=== PATIENT | male | born 1940 | race Caucasian/White ===

== ENCOUNTER 2018-04-30 09:29 | Day surgery (SDC) | payer MEDICARE ==
[~2018-04-30] VITALS: Ht 172.7 cm; Wt 125.2 kg
[2018-04-30] VITALS (8 sets, daily range): BP systolic 112–144; BP diastolic 65–85
[2018-04-30] MEDS ORDERED: LIDOCAINE 2% VISCOUS 15 ML UDC ONE (09:42)
[2018-04-30] MEDS ORDERED: NS IV 1000 ML 1,000 ML ONE (09:42)
[2018-04-30] MEDS ORDERED: proPOfol 200 MG/20 ML (DIPRIVAN) VIAL IV ONE (10:26)
[2018-04-30] MEDS ORDERED: MIDAZOLAM 5 MG/5 ML (VERSED) VIAL ONE (10:26)
[2018-04-30] MEDS ORDERED: TAMS0.4C2 PO (10:50)
[2018-04-30] MEDS ORDERED: POTA10TA36 PO (10:50)
[2018-04-30] MEDS ORDERED: RT-ALBUINH IH (10:50)
[2018-04-30] MEDS ORDERED: CETI10TA17 PO (10:50)
[2018-04-30] MEDS ORDERED: FURO-125 PO (10:50)
[2018-04-30] MEDS ORDERED: APIX5TAB PO (10:50)
[2018-04-30] MEDS ORDERED: AMLO10TA2 PO (10:52)
[2018-04-30] MEDS ORDERED: LOSA100T28 PO (10:52)
[2018-04-30] MEDS ORDERED: NS IV 1000 ML 1,000 ML IV SCH (11:00)
[2018-04-30] MEDS ORDERED: MIDAZOLAM 2 MG/2 ML (VERSED) VIAL IVP ONE (11:15)
--- NOTE | 2018-04-30 11:31 | Anesthesia-Procedure Note ---
Procedures/Interventions Procedure Start/Stop/Diagnosis Date of Procedure: Apr 30, 2018 Start Time: 11:05 Referring Physician: Orin Preprocedural Diagnosis: Atrial Fibrillation Brief History Called to Cardiology for scheduled sedation of pt for a YUMIKO with cardioversion for A-Fib. Pt was already sedated with Versed by RN on arrival. YUMIKO in progress. NPO verified ASA 3. All standard monitors applied, O2 per NC at 4 lpm flowing. Pt was given a total of 170 mg of Propofol increments. Pt coverted to SB in 50's. VSS. Pt was opening eyes, sats 99%. Report given to RN Stop Time: 11:20 Postprocedural Diagnosis: Atrial Fibrillation ALCON NORIEAG CRNA Apr 30, 2018 11:31
[2018-04-30] MEDS ORDERED: LIDOCAINE 2% VISCOUS 15 ML UDC PO ONE (12:15)
--- NOTE | 2018-04-30 14:09 | Cardioversion ---
Cardioversion PROCEDURE PHYSICIAN: Reji Sr MD DATE OF PROCEDURE: 04/30/18 DIRECT EXTERNAL ELECTRICAL CARDIOVERSION: Indications: Atrial Fibrillation with rapid ventricular rate Preoperative diagnoses: Atrial Fibrillation with rapid ventricular rate Postoperative diagnosis: Sinus rhythm, Successful Electrical Cardioversion History: Anesthesia: By Anesthesia services Complications: None Specimen: None Contrast: 0 Flouroscopy: none Procedure Details: The patient was brought the laboratory director after informed consent was taken, all the risks and complications were explained including the risk of stroke. YUMIKO showed no LA/OXANA thrombus. Electrical cardioversion was carried out with anesthesia support with propofol. Two 200 joules of synchronized shock was delivered through external patches which promptly restored sinus rhythm. The patient tolerated the procedure well. Conclusions: 1.Successful Cardioversion. 2.Continue oral anticoagulation and rate controlling agent. 3.Follow up in office in 7 days. Reji Sr MD, RS, CCDS Cardiac Electrophysiology Anthony SR MD Apr 30, 2018 2:09 pm
== END 2018-04-30 14:00 | disposition home or self-care (01) ==
LOC: CATH 09:29 → SURG 12:08 → CATH 14:00
PROVIDERS: ATTEND Internal Medicine Interventional Cardiology
DX: I48.0 Paroxysmal atrial fibrillation (principal); J44.9 Chronic obstructive pulmonary disease, unspecified; I12.9 Hypertensive chronic kidney disease with stage 1 through stage 4 chronic kidney disease, or unspecified chronic kidney disease; N18.9 Chronic kidney disease, unspecified; E78.5 Hyperlipidemia, unspecified; E66.01 Morbid (severe) obesity due to excess calories; Z68.41 Body mass index [BMI] 40.0-44.9, adult; Z79.01 Long term (current) use of anticoagulants; Z79.899 Other long term (current) drug therapy; Z87.891 Personal history of nicotine dependence; Z98.84 Bariatric surgery status
CPT/HCPCS: 87081; 92960; 93005; 93320; 93325

== ENCOUNTER 2018-08-05 12:00 | Outpatient (RCR) | payer MEDICARE, OTHER ==
[~2018-08-05 12:00] MED LIST: AMLO10TA6 PO; APIX5TAB PO; CETI10TA17 PO; FURO-125 PO; LOSA100T8 PO; POTA10TA36 PO; RT-ALBUINH IH; TAMS0.4C2 PO
== END 2018-10-05 | disposition home or self-care (01) ==
LOC: CARD 12:00
PROVIDERS: ATTEND Internal Medicine Interventional Cardiology
DX: I48.1 Persistent atrial fibrillation (principal)
CPT/HCPCS: 93270

== ENCOUNTER 2019-04-15 07:15 | Day surgery (SDC) | payer MEDICAID, MEDICARE ==
[~2019-04-15] VITALS: Ht 170.2 cm; Wt 126.6 kg
[~2019-04-15 07:15] MED LIST changes: -AMLO10TA6 PO; +AMLO10TA7 PO; +LOSA100T57 PO; -LOSA100T8 PO
[2019-04-15] MEDS ORDERED: LIDOCAINE 1% INJ 20 ML 20 ML VIAL ONE (07:16)
--- OUTSIDE RECORDS SUMMARY | 2019-04-15 07:19 | XMS REPORT | Continuity of Care Document ---
Author Organization Unknown Address Unknown Allergies There is no data. Medications There is no data. Problems There is no data. Procedures There is no data. Results There is no data. Encounters ACCT No. Visit Date/Time Discharge Status Pt. Type Provider Facility Loc./Unit Complaint [id number] 04/06/2019 14:40:00 04/06/2019 23:59:59 [facility]
[2019-04-15 07:26] VITALS: BP 140/65
[2019-04-15] MEDS ORDERED: LIDOCAINE 1% INJ 20 ML 20 ML VIAL INJ ONE (07:30)
[2019-04-15 09:50] VITALS: BP 148/62
--- NOTE | 2019-04-17 15:46 | Implantation of Loop Monitor ---
Implant of Loop Monitior PROCEDURE PHYSICIAN: Reji Sr MD IMPLANTATION OF LOOP MONITOR REPORT DATE OF PROCEDURE: 04/15/19 ATTENDING PHYSICIAN: Dr. Armin Sr. PERFORMING PHYSICIAN: Dr. Armin Sr. INDICATION: Long-term surveillance of atrial fibrillation PREOP DIAGNOSIS: Long-term surveillance of atrial fibrillation POSTOP DIAGNOSIS: Atrial fibrillation, s/p implantation of loop recorder. PROCEDURE DETAILS: The patient is a 78 male with history of paroxysmal atrial fibrillation requiring long-term surveillance. Therefore implantable loop recorder was discussed and agreed with the patient. Informed consent was taken. All risks and complications were discussed at length. The patient was draped and prepped in the usual sterile fashion. Local anesthesia was lidocaine, which was given in the substernal area close to the 4th intercostal space. Loop monitor was implanted according to the protocol. Steri-Strips were placed at the end of the procedure. There were no complications and the patient tolerated the procedure well. ANESTHESIA: Local anesthesia with lidocaine. COMPLICATIONS: None CONTRAST/FLUOROSCOPY: None CONCLUSION: 1. Successful implantation of loop monitor for atrial fibrillation. 2. No complication and the patient tolerated the procedure well. Reji Sr MD, RS, CCDS Cardiac Electrophysiology Anthony SR MD Apr 17, 2019 15:46
== END 2019-04-15 09:52 | disposition home or self-care (01) ==
LOC: CATH 07:15
PROVIDERS: ATTEND Internal Medicine Interventional Cardiology
DX: I48.1 Persistent atrial fibrillation (principal); J44.9 Chronic obstructive pulmonary disease, unspecified; E78.5 Hyperlipidemia, unspecified; I49.1 Atrial premature depolarization; I49.3 Ventricular premature depolarization; I12.9 Hypertensive chronic kidney disease with stage 1 through stage 4 chronic kidney disease, or unspecified chronic kidney disease; N18.3 Chronic kidney disease, stage 3 (moderate); R53.83 Other fatigue; E66.9 Obesity, unspecified; Z98.84 Bariatric surgery status; Z68.41 Body mass index [BMI] 40.0-44.9, adult; Z79.899 Other long term (current) drug therapy
CPT/HCPCS: 33285

== ENCOUNTER 2019-10-28 08:01 | Day surgery (SDC) | payer MEDICARE ==
[2019-10-28] VITALS (7 sets, daily range): BP systolic 84–134; BP diastolic 50–74
[~2019-10-28] VITALS: Ht 172.2 cm; Wt 128.0 kg
[2019-10-28] MEDS ORDERED: NS IV 1000 ML 1,000 ML ONE (08:04)
[2019-10-28] MEDS ORDERED: NS IV 1000 ML 1,000 ML IV SCH (08:15)
[2019-10-28] MEDS ORDERED: proPOfol 200 MG/20 ML (DIPRIVAN) VIAL IV ONE (08:37)
[2019-10-28] MEDS ORDERED: MIDAZOLAM 2 MG/2 ML (VERSED) VIAL ONE (08:38)
--- NOTE | 2019-10-28 09:50 | NUR ---
iv dc'd, catheter intact, drsg applied. intructions given. pt out per wheelchair to vehicle with pt
--- NOTE | 2019-10-28 10:46 | Cardioversion ---
Cardioversion PROCEDURE PHYSICIAN: Reji Sr MD DATE OF PROCEDURE: 10/28/19 DIRECT EXTERNAL ELECTRICAL CARDIOVERSION: Indications: Atrial Fibrillation with controlled ventricular rate Preoperative diagnoses: Atrial Fibrillation with controlled ventricular rate Postoperative diagnosis: Sinus rhythm, Successful Electrical Cardioversion History: This is a 78-year-old gentleman with persistent atrial fibrillation. He has been on uninterrupted oral anticoagulation therapy for at least the last one month. He was recently started on flecainide and metoprolol. Anesthesia: By Anesthesia services Complications: None Specimen: None Contrast: 0 Flouroscopy: none Procedure Details: The patient was brought the lab head after informed consent was taken, all the risks and complications were explained including the risk of stroke. Electrical cardioversion was carried out with anesthesia support with propofol. 200 joules of synchronized shock was delivered through external patches which promptly restored sinus rhythm. The patient tolerated the procedure well. Conclusions: 1.Successful Cardioversion. 2.Continue oral anticoagulation, antiarrhythmic therapy and rate controlling agent. 3.Follow up in office in one month. Reji Sr MD, [facility] Cardiac Electrophysiology Anthony SR MD Oct 28, 2019 10:46
== END 2019-10-28 09:55 | disposition home or self-care (01) ==
LOC: CATH 08:01
PROVIDERS: ATTEND Internal Medicine Interventional Cardiology
DX: I48.0 Paroxysmal atrial fibrillation (principal); I49.1 Atrial premature depolarization; I49.3 Ventricular premature depolarization; J44.9 Chronic obstructive pulmonary disease, unspecified; I12.9 Hypertensive chronic kidney disease with stage 1 through stage 4 chronic kidney disease, or unspecified chronic kidney disease; N18.9 Chronic kidney disease, unspecified; M10.9 Gout, unspecified; Z87.891 Personal history of nicotine dependence; Z79.899 Other long term (current) drug therapy; Z98.84 Bariatric surgery status; Z80.9 Family history of malignant neoplasm, unspecified
CPT/HCPCS: 92960; 93005

== ENCOUNTER → 2020-01-03 | Outpatient (CLI) | payer MEDICARE ==
[~2020-01-03] MED LIST changes: +ALLO100T PO; +FLEC50TA PO; +FLUO20CA46 PO; +FURO20TA4 PO; +MTP25TSR PO; +TMSL.4C PO; +UMEC62.5 IH
--- NOTE | 2020-01-03 12:06 | Diagnostic Imaging Report ---
US RENAL ART DOPPLER TUYET COMP TECHNIQUE: Multi-projectional grayscale, color Doppler and spectral duplex imaging of the bilateral kidneys and renal vasculature was performed. INDICATION: Renal insufficiency. COMPARISON: None available. FINDINGS: Right side: Right kidney is normal in size measuring 11 cm. There is no hydronephrosis or suspicious mass lesion. A simple cyst projects from the lower pole measuring 1.8 x 1.3 x 1.5 cm, and requires no dedicated follow-up imaging. The following measurements were made for the right renal vasculature and/or as follows: Main renal artery: Main renal artery is patent with normal directional flow on color Doppler imaging. Maximal peak systolic velocity is 116 cm/s. Interlobular/arcuate arteries: Patent with normal acceleration indices. PSV:Aorta : 1.1 Left side: Left kidney is normal in size 12 cm. There is no hydronephrosis or suspicious mass lesion. The following measurements were made for the left renal vasculature and/or as follows: Main renal artery: Color Doppler imaging shows patency of the main renal artery. Maximal peak slight velocity is 220 cm/s in its proximal aspect. Interlobular/arcuate arteries: Patent with normal acceleration indices. PSV:Aorta : 2.0 IMPRESSION: 1. No renal atrophy or hydronephrosis. 2. No renal artery stenosis. Abnormal Parameters: PSV > 200 cm/s PSV:Aorta > 3.5 Acceleration Index < 300 cm/sec2 Acceleration time > 70 msec Dictated by: Dictated on workstation # [id number]
== END ==
LOC: RAD 07:41
PROVIDERS: ATTEND Urology
DX: N28.9 Disorder of kidney and ureter, unspecified (principal)
CPT/HCPCS: 76770; 93975

== ENCOUNTER → 2020-03-06 | Outpatient (CLI) | payer MEDICARE | LOC: LABNPT 09:17 | PROVIDERS: ATTEND Internal Medicine Interventional Cardiology | DX: Z01.818 Encounter for other preprocedural examination (principal); Z11.59 Encounter for screening for other viral diseases | CPT/HCPCS: 87635 ==

== ENCOUNTER 2020-03-09 07:07 | Day surgery (SDC) | payer MEDICARE ==
[2020-03-09] VITALS (18 sets, daily range): BP systolic 119–159; BP diastolic 59–97
[~2020-03-09] VITALS: Ht 172 cm; Wt 124.0 kg
[2020-03-09] MEDS ORDERED: NS IV 1000 ML 1,000 ML IV SCH (07:19)
[2020-03-09] MEDS ORDERED: HEParin (CATH LAB) 2,000 ML IV ONE (07:21)
[2020-03-09] MEDS ORDERED: LIDOCAINE 1% INJ 20 ML 20 ML VIAL ONE (07:21)
[2020-03-09] MEDS ORDERED: NS IV 1000 ML 4,000 ML ONE (07:21)
[2020-03-09] MEDS ORDERED: HEParin 1000 UNIT/ML (10ML VIAL) FOR BOLUS ONE ×2 (07:21→10:34)
[2020-03-09] MEDS ORDERED: ISOPROTERENOL 0.2 MG/D5W 50 ML IV ONE (07:30)
[2020-03-09] MEDS ORDERED: proPOfol 200 MG/20 ML (DIPRIVAN) VIAL IV ONE (07:42)
[2020-03-09] MEDS ORDERED: ROCURONIUM 10 MG/ML 5 ML SYRINGE IV ONE ×3 (07:42→11:40)
[2020-03-09] MEDS ORDERED: SUCCINYLCHOLINE INJ 100 MG/5 ML SYR ONE (07:42)
[2020-03-09] MEDS ORDERED: MIDAZOLAM 2 MG/2 ML (VERSED) VIAL ONE (07:43)
[2020-03-09] MEDS ORDERED: fentaNYL INJECTION 100 MCG/2 ML AMP ONE ×2 (07:43→13:34)
[2020-03-09] MEDS ORDERED: LIDOCAINE PF 1% 2 ML AMP ONE (07:43)
[2020-03-09] MEDS ORDERED: SEVOFLURANE (ULTANE) 15 ML INHAL SOLN ONE ×2 (07:43→13:11)
[2020-03-09] MEDS ORDERED: ONDANSETRON 4 MG/2 ML (SDV) Z0FRAN ONE (07:43)
[2020-03-09 07:46] LABS: HEMOGLOBIN 13.3 G/DL (13.3-17.7); MEAN PLATELET VOLUME 10.9 FL (7.4-10.4)
[2020-03-09] MEDS ORDERED: HEParin (CATH LAB) 1,000 ML IV ONE (07:51)
[2020-03-09 07:59] LABS: INR 1.2 (0.8-1.4)
[2020-03-09] MEDS ORDERED: HEParin DRIP 25000 UNIT/500ML 500 ML IV ONE (07:59)
[2020-03-09 08:05] LABS: BILIRUBIN,TOTAL 0.7 MG/DL (0.1-1.0); CREATININE SERUM 1.39 MG/DL (0.60-1.30); POTASSIUM 4.6 MMOL/L (3.6-5.0); TOTAL PROTEIN 6.8 GM/DL (6.4-8.2)
[2020-03-09] MEDS ORDERED: NS IV 1000 ML 1,000 ML ONE (10:27)
--- OUTSIDE RECORDS SUMMARY | 2020-03-09 10:38 | XMS REPORT ---
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 Dec, Active 362199137 Problem Congestive heart failure, un specified HF chronicity, unspecified heart failure type I50.9 Active 64678049 Problem Chronic kidney disease, unspecified N18.9 Active 699317649 Problem Chronic obstructive pulmonary disease, unspecified J44.9 Active 83595666 Problem Hyperlipidemia, unspecified E78.5 Ac tive 53995485 Problem Essential hypertension I10 Active 48219803 Problem Atrial fibrillation, unspecified type I48.91 Active 36754301 ALLERGIES No Information ENCOUNTERS Encounter Location Date Diagnosis [facility] [id number] [address] Jan, [facility] [address] [facility] [id number] [address] [address] Jan, [facility] [id number] [address] Jan, [facility] [id number] [place] [address] Jan, Chronic obstructive pulmonary disease, unspecified J44.9 [facility] [id number] [address] Jan, [facility] [id number] [place] [address] Jan, Chronic kidney disease, unspecified N18.9 [facility] [id number] [address] Jan, Tremor R25.1 [facility] [address] [facility] [id number] [address] [place] [id number] 27 Dec, 2019 [facility] [address] [facility] [id number] [address] [place] [address] Dec, Gout M10.9 ; Essential hyper tension I10 and Atrial fibrillation, unspecified type I48.91 [facility] [address] [facility] [id number] [address] [place] [address] Dec, Chronic obstructive pulmonar y disease, unspecified J44.9 [facility] [address] [facility] [id number] [address] [place] [address] Dec, Chronic obstructive pulmonar y disease, unspecified J44.9 [facility] [address] [place] [address] Dec, Ear pain H92.09 and Right ear pain H92.01 [place] [address] [place] [address] Nov, Congestive heart failure, unspecified HF chronicity, unspecified heart failure type I50.9 and Orthopnea R06.01 [place] [id number] [place] [address] Nov, [facility] [id number] [address] Nov, Acute heart failure, unspecified heart failure type I50.9 ; Atrial fibrillation, unspecified type I48.91 ; Chronic kidney disease, unspecified N18.9 and Acute kidney failure, unspecified N17.9 [facility] [id number] [id number] Nov, Orthopnea R06.01 and Atrial fibrillation, unspecified type I48.91 [facility] [address] [address] Oct, Orthopnea R06.01 ; Atrial fibrillation, unspecified type I48.91 ; Gout M10.9 ; Essential hypertension I10 and Bradycardia R00.1 [facility] [address] [facility] [id number] [address] [place] [address] Oct, [facility] [id number] [address] Oct, B12 deficiency E53.8 [facility] [id number] [address] Aug, Encounter for immunization Z23 [address] [id number] [address] Jul, [facility] [id number] [place] [address] Jul, B12 deficiency E53.8 [place] [address] [place] [address] Jul, Essential hypertension I10 and 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 00 [facility] [address] [place] [address] Jan, Morbid obesity E66.01 and Essential (primary) hypertension I10 [facility] [address] [place] [address] Jan, Essential (primary) hypertension I10 ; Morbid obesity E66.01 ; Chronic obstructive pulmonary disease, unspecified J44.9 ; Hyperlipidemia, unspecified E78.5 and Weakness R53.1 [facility] [address] [facility] [id number] [address] [place] [address] Sep, [facility] [address] [facility] [id number] [address] [place] [address] Aug, IMMUNIZATIONS No Known Immunizations SOCIAL HISTORY Never Assessed REASON FOR VISIT PLAN OF CARE VITAL SIGNS MEDICATIONS Medication Instructions Dosage Frequency Start Date End Date Duration S brandon Amlodipine Besylate 10 MG Orally Once a day 1 tablet 24h Apr, 8 90 days Active Allopurinol 100 MG Orally Once a day 1 tablet 24h Jul, 90 days Active Apixaban 5 MG Orally 2 times a day 1 tablet 12h Jan, Active Losartan Potassium 100 MG Orally Once a day 1 tablet 24h 17 Apr, 8 90 days Active RESULTS No Results PROCEDURES No Known procedures INSTRUCTIONS MEDICATIONS ADMINISTERED No Known Medications MEDICAL (GENERAL) HISTORY Type Description Date Medical History Hypertension Medical History hyperlipidemia Medical History Gout Medical History heart cath Medical History treadmill stress test Surgical History defibulator oct 2019 Surgical History gastric bypass 2009 Surgical History tonsils Hospitalization History surgeries
--- OUTSIDE RECORDS SUMMARY | 2020-03-09 10:38 | XMS REPORT | Continuity of Care Document ---
Author Organization Unknown Address Unknown Phone Unavailable Allergies Active Description Code Type Severity Reaction Onset Reported/Identified Relationship to Patient Clinical Status Yes NO KNOWN DRUG ALLERGIES UNKNOWN NO KNOWN DRUG ALLERG Yes No Known Drug Allergies [id number] Drug Allergy Unknown N/A 04/30/2018 Medications Medication Packaging Start Date St op Date Route Dosage Sig IPRATROPIUM/ALBUTEROL INH SO LN (DUO-NEB INH SOLN) MLS 10/10/2017 10/10/2017 [id number] Problems Date Dx Coded Attending Type Code Diagnosis Diagnosed By 10/10/2017 Tanner Stuart W 466.0 ACUTE BRONCHITIS 10/10/2017 Brown, Tanner W J20.9 ACUTE BRONCHITIS, UNSPECIFIED 10/10/2017 Brown, Tanner W 466.0 ACUTE BRONCHITIS 10/10/2017 Brown, Tanner W 786.59 OTHER CHEST PAIN 10/10/2017 Brown, Tanner W J20.9 ACUTE BRONCHITIS, UNSPECIFIED 10/10/2017 Brown, Tanner W R07.81 PLEURODYNIA 10/10/2017 Brown, Tanner W 466.0 ACUTE BRONCHITIS 10/10/2017 Brown, Tanner A 786.59 OTHER CHEST PAIN 10/10/2017 Brown, Tanner W J20.9 ACUTE BRONCHITIS, UNSPECIFIED 10/10/2017 Brown, Tanner A R07.81 PLEURODYNIA 04/30/2018 DAVID HERNANDEZ, Anthony MORA Ot E66.01 MORBID (SEVERE) OBESITY DUE TO EXCESS CA 04/30/2018 DAVID HERNANDEZ, Anthony MORA Ot E78 .5 HYPERLIPIDEMIA, UNSPECIFIED 04/30/2018 DAVID HERNANDEZ, Anthony MORA Ot I12 .9 HYPERTENSIVE CHRONIC KIDNEY DISEASE W ST 04/30/2018 Anthony HERNANDEZ MD Ot I48 .0 PAROXYSMAL ATRIAL FIBRILLATION 04/30/2018 Anthony HERNANDEZ MD Ot J44 .9 CHRONIC OBSTRUCTIVE PULMONARY DISEASE, U 04/30/2018 Anthony HERNANDEZ MD Ot N18 .9 CHRONIC KIDNEY DISEASE, UNSPECIFIED 04/30/2018 Anthony HERNANDEZ MD Ot Z68.41 BODY MASS INDEX (BMI) 40.0-44.9, ADULT 04/30/2018 Anthony HERNANDEZ MD Ot Z79.01 OFFICE ASSISTANCE (CURRENT) USE OF ANTICOAGULANT 04/30/2018 Anthony HERNANDEZ MD Ot Z79.899 OTHER OFFICE ASSISTANCE (CURRENT) DRUG THERAPY 04/30/2018 Anthony HERNANDEZ MD Ot Z87.891 PERSONAL HISTORY OF NICOTINE DEPENDENCE 04/30/2018 Anthony HERNANDEZ MD Ot Z98.84 BARIATRIC SURGERY STATUS 05/01/2018 Anthony HERNANDEZ MD Ot E66.01 MORBID (SEVERE) OBESITY DUE TO EXCESS CA 05/01/2018 Anthony HERNANDEZ MD Ot E78 .5 HYPERLIPIDEMIA, UNSPECIFIED 05/01/2018 Anthony HERNANDEZ MD Ot I12 .9 HYPERTENSIVE CHRONIC KIDNEY DISEASE W ST 05/01/2018 Anthony HERNANDEZ MD Ot I48 .0 PAROXYSMAL ATRIAL FIBRILLATION 05/01/2018 Anthony HERNANDEZ MD Ot J44 .9 CHRONIC OBSTRUCTIVE PULMONARY DISEASE, U 05/01/2018 Anthony HERNANDEZ MD Ot N18 .9 CHRONIC KIDNEY DISEASE, UNSPECIFIED 05/01/2018 Anthony HERNANDEZ MD Ot Z68.41 BODY MASS INDEX (BMI) 40.0-44.9, ADULT 05/01/2018 Anthony HERNANDEZ MD Ot Z79.01 OFFICE ASSISTANCE (CURRENT) USE OF ANTICOAGULANT 05/01/2018 Anthony HERNANDEZ MD Ot Z79.899 OTHER FDC (CURRENT) DRUG THERAPY 05/01/2018 Anthony HERNANDEZ MD Ot Z87.891 PERSONAL HISTORY OF NICOTINE DEPENDENCE 05/01/2018 Anthony HERNANDEZ MD Ot Z98.84 BARIATRIC SURGERY STATUS 05/29/2018 Anthony HERNANDEZ MD Ot E66.01 MORBID (SEVERE) OBESITY DUE TO EXCESS CA 05/29/2018 Anthony HERNANDEZ MD Ot E78 .5 HYPERLIPIDEMIA, UNSPECIFIED 05/29/2018 Anthony HERNANDEZ MD Ot I10 ESSENTIAL (PRIMARY) HYPERTENSION 05/29/2018 Anthony HERNANDEZ MD Ot I48 .1 PERSISTENT ATRIAL FIBRILLATION 05/29/2018 Anthony HERNANDEZ MD Ot R06.02 SHORTNESS OF BREATH 05/29/2018 Anthony HERNANDEZ MD Ot R07 .9 CHEST PAIN, UNSPECIFIED 05/29/2018 Anthony HERNANDEZ MD Ot R53.83 OTHER FATIGUE 06/17/2018 Anthony HERNANDEZ MD Ot E66.01 MORBID (SEVERE) OBESITY DUE TO EXCESS CA 06/17/2018 Anthony HERNANDEZ MD Ot E78 .5 HYPERLIPIDEMIA, UNSPECIFIED 06/17/2018 Anthony HERNANDEZ MD Ot I10 ESSENTIAL (PRIMARY) HYPERTENSION 06/17/2018 Anthony HERNANDEZ MD Ot I48 .1 PERSISTENT ATRIAL FIBRILLATION 06/17/2018 Anthony HERNANDEZ MD Ot R06.02 SHORTNESS OF BREATH 06/17/2018 Anthony HERNANDEZ MD Ot R07 .9 CHEST PAIN, UNSPECIFIED 06/17/2018 DAVID HERNANDEZ M MORGAN Ot R53.83 OTHER FATIGUE 07/07/2018 Anthony HERNANDEZ MD Ot E66.01 MORBID (SEVERE) OBESITY DUE TO EXCESS CA 07/07/2018 Anthony HERNANDEZ MD Ot E78 .5 HYPERLIPIDEMIA, UNSPECIFIED 07/07/2018 Anthony HERNANDEZ MD Ot I10 ESSENTIAL (PRIMARY) HYPERTENSION 07/07/2018 Anthony HERNANDEZ MD Ot I48 .1 PERSISTENT ATRIAL FIBRILLATION 07/07/2018 Anthony HERNANDEZ MD Ot R06.02 SHORTNESS OF BREATH 07/07/2018 Anthony HERNANDEZ MD Ot R07 .9 CHEST PAIN, UNSPECIFIED 07/07/2018 DAVID HERNANDEZ M MORGAN Ot R53.83 OTHER FATIGUE 07/09/2018 Anthony HERNANDEZ MD Ot I48 .1 PERSISTENT ATRIAL FIBRILLATION 07/10/2018 Anthony HERNANDEZ MD Ot E66.01 MORBID (SEVERE) OBESITY DUE TO EXCESS CA 07/10/2018 DAVID HERNANDEZ, Anthony MORA Ot E78 .5 HYPERLIPIDEMIA, UNSPECIFIED 07/10/2018 Anthony HERNANDEZ MD Ot I10 ESSENTIAL (PRIMARY) HYPERTENSION 07/10/2018 Anthony HERNANDEZ MD Ot I48 .1 PERSISTENT ATRIAL FIBRILLATION 07/10/2018 Anthony HERNANDEZ MD Ot R06.02 SHORTNESS OF BREATH 07/10/2018 Anthony HERNANDEZ MD Ot R07 .9 CHEST PAIN, UNSPECIFIED 07/10/2018 Anthony HERNANDEZ MD Ot R53.83 OTHER FATIGUE 07/10/2018 Anthony HERNANDEZ MD Ot I48 .1 PERSISTENT ATRIAL FIBRILLATION 07/10/2018 Anthony HERNANDEZ MD Ot E66.01 MORBID (SEVERE) OBESITY DUE TO EXCESS CA 07/10/2018 Anthony HERNANDEZ MD Ot E78 .5 HYPERLIPIDEMIA, UNSPECIFIED 07/10/2018 Anthony HERNANDEZ MD Ot I10 ESSENTIAL (PRIMARY) HYPERTENSION 07/10/2018 Anthony HERNANDEZ MD Ot I48 .1 PERSISTENT ATRIAL FIBRILLATION 07/10/2018 Anthony HERNANDEZ MD Ot R06.02 SHORTNESS OF BREATH 07/10/2018 Anthony HERNANDEZ MD Ot R07 .9 CHEST PAIN, UNSPECIFIED 07/10/2018 Anthony HERNANDEZ MD Ot R53.83 OTHER FATIGUE 07/30/2018 Anthony HERNANDEZ MD Ot E66.01 MORBID (SEVERE) OBESITY DUE TO EXCESS CA 07/30/2018 Anthony HERNANDEZ MD Ot E78 .5 HYPERLIPIDEMIA, UNSPECIFIED 07/30/2018 Anthony HERNANDEZ MD Ot I10 ESSENTIAL (PRIMARY) HYPERTENSION 07/30/2018 Anthony HERNANDEZ MD Ot I48 .1 PERSISTENT ATRIAL FIBRILLATION 07/30/2018 Anthony HERNANDEZ MD Ot R06.02 SHORTNESS OF BREATH 07/30/2018 Anthony HERNANDEZ MD Ot R07 .9 CHEST PAIN, UNSPECIFIED 07/30/2018 Anthony HERNANDEZ MD Ot R53.83 OTHER FATIGUE 07/30/2018 Anthony HERNANDEZ MD Ot I48 .1 PERSISTENT ATRIAL FIBRILLATION 07/30/2018 Anthony HERNANDEZ MD Ot E66.01 MORBID (SEVERE) OBESITY DUE TO EXCESS CA 07/30/2018 Anthony HERNANDEZ MD Ot E78 .5 HYPERLIPIDEMIA, UNSPECIFIED 07/30/2018 Anthony HERNANDEZ MD Ot I10 ESSENTIAL (PRIMARY) HYPERTENSION 07/30/2018 Anthony HERNANDEZ MD Ot I48 .1 PERSISTENT ATRIAL FIBRILLATION 07/30/2018 Anthony HERNANDEZ MD Ot R06.02 SHORTNESS OF BREATH 07/30/2018 Anthony HERNANDEZ MD Ot R07 .9 CHEST PAIN, UNSPECIFIED 07/30/2018 Anthony HERNANDEZ MD Ot R53.83 OTHER FATIGUE 08/19/2018 Anthony HERNANDEZ MD Ot I48 .1 PERSISTENT ATRIAL FIBRILLATION 10/05/2018 Anthony HERNANDEZ MD Ot I48 .1 PERSISTENT ATRIAL FIBRILLATION 10/08/2018 Anthony HERNANDEZ MD Ot I48 .1 PERSISTENT ATRIAL FIBRILLATION 10/11/2018 Anthony HERNANDEZ MD Ot I48 .1 PERSISTENT ATRIAL FIBRILLATION 04/14/2019 Anthony HERNANDEZ MD Ot E66.01 MORBID (SEVERE) OBESITY DUE TO EXCESS CA 04/14/2019 Anthony HERNANDEZ MD Ot E78 .5 HYPERLIPIDEMIA, UNSPECIFIED 04/14/2019 Anthnoy HERNANDEZ MD Ot I10 ESSENTIAL (PRIMARY) HYPERTENSION 04/14/2019 Anthony HERNANDEZ MD Ot I48 .1 PERSISTENT ATRIAL FIBRILLATION 04/14/2019 Anthony HERNANDEZ MD Ot R06.02 SHORTNESS OF BREATH 04/14/2019 Anthony HERNANDEZ MD Ot R07 .9 CHEST PAIN, UNSPECIFIED 04/14/2019 Anthony HERNANDEZ MD Ot R53.83 OTHER FATIGUE 04/14/2019 Anthony HERNANDEZ MD Ot I48 .1 PERSISTENT ATRIAL FIBRILLATION 04/14/2019 Anthony HERNANDEZ MD Ot E66.01 MORBID (SEVERE) OBESITY DUE TO EXCESS CA 04/14/2019 Anthony HERNANDEZ MD Ot E78 .5 HYPERLIPIDEMIA, UNSPECIFIED 04/14/2019 Anthony HERNANDEZ MD Ot I10 ESSENTIAL (PRIMARY) HYPERTENSION 04/14/2019 Anthony HERNANDEZ MD Ot I48 .1 PERSISTENT ATRIAL FIBRILLATION 04/14/2019 Anthony HERNANDEZ MD Ot R06.02 SHORTNESS OF BREATH 04/14/2019 Anthony HERNANDEZ MD Ot R07 .9 CHEST PAIN, UNSPECIFIED 04/14/2019 Anthony HERNANDEZ MD Ot R53.83 OTHER FATIGUE 04/14/2019 Anthony HERNANDEZ MD Ot I48 .1 PERSISTENT ATRIAL FIBRILLATION 04/15/2019 Anthony HERNANDEZ MD Ot E66 .9 OBESITY, UNSPECIFIED 04/15/2019 Anthony HERNANDEZ MD Ot E78 .5 HYPERLIPIDEMIA, UNSPECIFIED 04/15/2019 Anthony HERNANDEZ MD Ot I12 .9 HYPERTENSIVE CHRONIC KIDNEY DISEASE W ST 04/15/2019 Anthony HERNANDEZ MD Ot I48 .1 PERSISTENT ATRIAL FIBRILLATION 04/15/2019 Anthony HERNANDEZ MD Ot I49 .1 ATRIAL PREMATURE DEPOLARIZATION 04/15/2019 Anthony HERNANDEZ MD Ot I49 .3 VENTRICULAR PREMATURE DEPOLARIZATION 04/15/2019 Anthony HERNANDEZ MD Ot J44 .9 CHRONIC OBSTRUCTIVE PULMONARY DISEASE, U 04/15/2019 Anthony HERNANDEZ MD, Ot N18 .3 CHRONIC KIDNEY DISEASE, STAGE 3 (MODERAT 04/15/2019 Anthony HERNANDEZ MD Ot R53.83 OTHER FATIGUE 04/15/2019 Anthony HERNANDEZ MD Ot Z68.41 BODY MASS INDEX (BMI) 40.0-44.9, ADULT 04/15/2019 Anthony HERNANDEZ MD, Ot Z79.899 OTHER OFFICE ASSISTANCE (CURRENT) DRUG THERAPY 04/15/2019 Anthony HERNANDEZ MD Ot Z98.84 BARIATRIC SURGERY STATUS 04/20/2019 KHALID MD, M MORGAN Ot E66 .9 OBESITY, UNSPECIFIED 04/20/2019 Anthony HERNANDEZ MD Ot E78 .5 HYPERLIPIDEMIA, UNSPECIFIED 04/20/2019 Anthony HERNANDEZ MD Ot I12 .9 HYPERTENSIVE CHRONIC KIDNEY DISEASE W ST 04/20/2019 Anthony HERNANDEZ MD Ot I48 .1 PERSISTENT ATRIAL FIBRILLATION 04/20/2019 Anthony HERNANDEZ MD Ot I49 .1 ATRIAL PREMATURE DEPOLARIZATION 04/20/2019 Anthony HERNANDEZ MD Ot I49 .3 VENTRICULAR PREMATURE DEPOLARIZATION 04/20/2019 Anthony HERNANDEZ MD, Ot J44 .9 CHRONIC OBSTRUCTIVE PULMONARY DISEASE, U 04/20/2019 Anthony HERNANDEZ MD, Ot N18 .3 CHRONIC KIDNEY DISEASE, STAGE 3 (MODERAT 04/20/2019 Anthony HERNANDEZ MD Ot R53.83 OTHER FATIGUE 04/20/2019 Anthony HERNANDEZ MD Ot Z68.41 BODY MASS INDEX (BMI) 40.0-44.9, ADULT 04/20/2019 Anthony HERNANDEZ MD Ot Z79.899 OTHER OFFICE ASSISTANCE (CURRENT) DRUG THERAPY 04/20/2019 Anthony HERNANDEZ MD Ot Z98.84 BARIATRIC SURGERY STATUS 04/21/2019 Anthony HERNANDEZ MD Ot I48 .1 PERSISTENT ATRIAL FIBRILLATION 10/28/2019 Anthony HERNANDEZ MD Ot I12 .9 HYPERTENSIVE CHRONIC KIDNEY DISEASE W ST 10/28/2019 Anthony HERNANDEZ MD Ot I48 .0 PAROXYSMAL ATRIAL FIBRILLATION 10/28/2019 Anthony HERNANDEZ MD Ot I49 .1 ATRIAL PREMATURE DEPOLARIZATION 10/28/2019 Anthony HERNANDEZ MD Ot I49 .3 VENTRICULAR PREMATURE DEPOLARIZATION 10/28/2019 Anthony HERNANDEZ MD Ot J44 .9 CHRONIC OBSTRUCTIVE PULMONARY DISEASE, U 10/28/2019 Anthony HERNANDEZ MD Ot M10 .9 GOUT, UNSPECIFIED 10/28/2019 Anthony HERNANDEZ MD Ot N18 .9 CHRONIC KIDNEY DISEASE, UNSPECIFIED 10/28/2019 Anthony HERNANDEZ MD, Ot Z79.899 OTHER FDC (CURRENT) DRUG THERAPY 10/28/2019 DAVID HERNANDEZ, Anthony MORA Ot Z80 .9 FAMILY HISTORY OF MALIGNANT NEOPLASM, UN 10/28/2019 DAVID HERNANDEZ, Anthony MORA Ot Z87.891 PERSONAL HISTORY OF NICOTINE DEPENDENCE 10/28/2019 DAVID HERNANDEZ, Anthony MORA Ot Z98.84 BARIATRIC SURGERY STATUS 11/01/2019 DAVID HERNANDEZ, Atnhony MORA Ot I12 .9 HYPERTENSIVE CHRONIC KIDNEY DISEASE W ST 11/01/2019 DAVID HERNANDEZ, Anthony MORA Ot I48 .0 PAROXYSMAL ATRIAL FIBRILLATION 11/01/2019 DAVID HERNANDEZ, Anthony MORA Ot I49 .1 ATRIAL PREMATURE DEPOLARIZATION 11/01/2019 DAVID HERNANDEZ, Anthony MORA Ot I49 .3 VENTRICULAR PREMATURE DEPOLARIZATION 11/01/2019 DAVID HERNANDEZ, Anthony MORA Ot J44 .9 CHRONIC OBSTRUCTIVE PULMONARY DISEASE, U 11/01/2019 DAVID HERNANDEZ, Anthony MORA Ot M10 .9 GOUT, UNSPECIFIED 11/01/2019 DAVID HERNANDEZ, Anthony MORA Ot N18 .9 CHRONIC KIDNEY DISEASE, UNSPECIFIED 11/01/2019 DAVID HERNANDEZ, Anthony MORA Ot Z79.899 OTHER OFFICE ASSISTANCE (CURRENT) DRUG THERAPY 11/01/2019 DAVID HERNANDEZ, Anthony MORA Ot Z80 .9 FAMILY HISTORY OF MALIGNANT NEOPLASM, UN 11/01/2019 DAVID HERNANDEZ, Anthony MORA Ot Z87.891 PERSONAL HISTORY OF NICOTINE DEPENDENCE 11/01/2019 DAVID HERNANDEZ, Anthony MORA Ot Z98.84 BARIATRIC SURGERY STATUS 11/11/2019 SHARIFA YANCEY MD Ot E66.01 MORBID (SEVERE) OBESITY DUE TO EXCESS CA 11/11/2019 SHARIFA YANCEY MD Ot E66 .9 OBESITY, UNSPECIFIED 11/11/2019 SHARIFA YANCEY MD Ot E78 .5 HYPERLIPIDEMIA, UNSPECIFIED 11/11/2019 SHARIFA YANCEY MD Ot G47.30 SLEEP APNEA, UNSPECIFIED 11/11/2019 SHARIFA YANCEY MD Ot I12 .9 HYPERTENSIVE CHRONIC KIDNEY DISEASE W ST 11/11/2019 SHARIFA YANCEY MD Ot 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 11/11/2019 SHARIFA YANCEY MD, Ot I25.10 ATHSCL HEART DISEASE OF [place] CORONARY 11/11/2019 SHARIFA YANCEY MD, Ot I48 .0 PAROXYSMAL ATRIAL FIBRILLATION 11/11/2019 SHARIFA YANCEY MD, Ot I49 .3 VENTRICULAR PREMATURE DEPOLARIZATION 11/11/2019 SHARIFA YANCEY MD, Ot I49 .5 SICK SINUS SYNDROME 11/11/2019 SHARIFA YANCEY MD, Ot I50.31 ACUTE DIASTOLIC (CONGESTIVE) HEART FAILU 11/11/2019 SHARIFA YANCEY MD, Ot J44 .9 CHRONIC OBSTRUCTIVE PULMONARY DISEASE, U 11/11/2019 SHARIFA YANCEY MD, Ot J45.909 UNSPECIFIED ASTHMA, UNCOMPLICATED 11/11/2019 SHARIFA YANCEY MD, Ot N17 .9 ACUTE KIDNEY FAILURE, UNSPECIFIED 11/11/2019 SHARIFA YANCEY MD, Ot N18 .9 CHRONIC KIDNEY DISEASE, UNSPECIFIED 11/11/2019 SHARIFA YANCEY MD, Ot R00 .8 OTHER ABNORMALITIES OF HEART BEAT 11/11/2019 SHARIFA YANCEY MD, Ot Z68.41 BODY MASS INDEX (BMI) 40.0-44.9, ADULT 11/11/2019 SHARIFA YANCEY MD, Ot Z79.01 OFFICE ASSISTANCE (CURRENT) USE OF ANTICOAGULANT 11/11/2019 SHARIFA YANCEY MD, Ot Z87.891 PERSONAL HISTORY OF NICOTINE DEPENDENCE 11/11/2019 SHARIFA YANCEY MD, Ot Z98.84 BARIATRIC SURGERY STATUS 12/29/2019 MIMI HECTOR MD, Ot N18.9 CHRONIC KIDNEY DISEASE, UNSPECIFIED 12/29/2019 MIMI HECTOR MD, Ot N18.9 CHRONIC KIDNEY DISEASE, UNSPECIFIED 12/31/2019 MIMI HECTOR MD, Ot I12.9 HYPERTENSIVE CHRONIC KIDNEY DISEASE W ST 12/31/2019 MIMI HECTOR MD, Ot N18.9 CHRONIC KIDNEY DISEASE, UNSPECIFIED 01/05/2020 MIMI HECTOR MD, Ot N28.9 DISORDER OF KIDNEY AND URETER, UNSPECIFI Procedures Code Description Performed By Per formed On [id number] CO ASURE OF CARDIAC SAMPL PRESSURE, L H 11/10/2019 [id number] FL UOROSCOPY OF MULT COR ART USING L OSM 11/10/2019 [id number] FL UOROSCOPY OF LEFT HEART USING LOW OSMO 11/10/2019 Results Test Result Range Comprehensive Metabolic Panel - 10/10/17 04:37 Albumin 3.9 g/dL 3.6-5.1 ALP 174 U/L 35-130 ALT 22 U/L 6-45 Anion Gap 15 6-14 AST 28 U/L 2-40 BUN 27 mg/dL 5-25 Calcium 8.9 mg/dL 8.3-10.4 Chloride 104 mmol/L 95-114 CO2 19 mEq/L 22-33 Creat 1.34 mg/dL 0.50-1.50 eGFR 52 mL/min/1.73m2 >59 Globulin 2.7 g/dL 2.3-3.5 Glucose 137 mg/dL 70-110 Osmo 284 280-295 Potassium 4.4 mmol/L 3.5-5.3 Sodium 134 mmol/L 134-148 TBil 0.8 mg/dL 0.2-1.2 TP 6.6 g/dL 6.0-8.3 Methicillin resistant Staphylococcus aur eus (MRSA) screening culture - 04/30/18 10:02 MRSA SCREEN RESULT MRSA ISOLATED [facility] PATHOLOGY REPORT (TISSUE PAHOLOGY) - 11/24 15:13 A SOURCE NR A GROSS DESCRIPTION NR A DIAGNOSIS NR CLINICAL INFORMATION NR PATHOLOGIST NRG CBC - 07/08/19 08:47 WHITE BLOOD CELL COUNT 16.9 Thousand/uL 3.8-10.8 RED BLOOD CELL COUNT 4.90 Million/uL 4.2 0-5.80 HEMOGLOBIN 13.9 g/dL 13.2-17.1 HEMATOCRIT 43.4 % 38.5-50.0 MCV 88.6 fL 80.0-100.0 MCH 28.4 pg 27.0-33.0 MCHC 32.0 g/dL 32.0-36.0 RDW 13.8 % 11.0-15.0 PLATELET COUNT 234 Thousand/uL 140-400 MPV 11.0 fL 7.5-12.5 ABSOLUTE NEUTROPHILS 35722 cells/uL 1500 -7800 ABSOLUTE LYMPHOCYTES 2805 cells/uL 850-3 900 ABSOLUTE MONOCYTES 625 cells/uL 200-950 ABSOLUTE EOSINOPHILS 0 cells/uL 15-500 ABSOLUTE BASOPHILS 17 cells/uL 0-200 NEUTROPHILS 79.6 % NRG LYMPHOCYTES 16.6 % NRG MONOCYTES 3.7 % NRG EOSINOPHILS 0.0 % NRG BASOPHILS 0.1 % NRG VITAMIN B12 - 07/08/19 08:47 VITAMIN B12 374 pg/mL 200-1100 CMP - 11/05/19 12:07 GLUCOSE 75 mg/dL 65-99 UREA NITROGEN (BUN) 28 mg/dL 7-25 CREATININE 1.33 mg/dL 0.70-1.18 eGFR NON-AFR. COLOMBIAN 51 mL/min/1.73m2 > OR = 60 eGFR 59 mL/min/1.73m2 > OR = 60 BUN/CREATININE RATIO 21 (calc) 6-22 SODIUM 139 mmol/L 135-146 POTASSIUM 4.5 mmol/L 3.5-5.3 CHLORIDE 110 mmol/L 98-110 CARBON DIOXIDE 22 mmol/L 20-32 CALCIUM 9.0 mg/dL 8.6-10.3 PROTEIN, TOTAL 6.3 g/dL 6.1-8.1 ALBUMIN 4.0 g/dL 3.6-5.1 GLOBULIN 2.3 g/dL (calc) 1.9-3.7 ALBUMIN/GLOBULIN RATIO 1.7 (calc) 1.0-2. 5 BILIRUBIN, TOTAL 0.5 mg/dL 0.2-1.2 ALKALINE PHOSPHATASE 190 U/L 40-115 AST 10 U/L 10-35 ALT 12 U/L 9-46 VITAMIN B12 - 11/05/19 12:07 VITAMIN B12 455 pg/mL 200-1100 BNP - 11/05/19 12:07 B TYPE NATRIURETIC PEPTIDE (BNP) 516 pg/mL <100 Complete blood count (CBC) with automate d white blood cell (WBC) differential - 11/09/19 13:20 Blood leukocytes automated count (number/volume) 9.9 10*3/uL 4.3-11.0 Blood erythrocytes automated count (number/volume) 4.85 10*6/uL 4.35-5.85 Venous blood hemoglobin measurement (mass/volume) 12.8 g/dL 13.3-17.7 Blood hematocrit (volume fraction) 41 % 40-54 Automated erythrocyte mean corpuscular volume 84 [ foz_us] 80-99 Automated erythrocyte mean corpuscular h emoglobin (mass per erythrocyte) 26 pg 25-34 Automated erythrocyte mean corpuscular h emoglobin concentration measurement (mass/volume) 31 g/dL 32-36 Automated erythrocyte distribution width ratio 14. 7 % 10.0- 14.5 Automated blood platelet count (count/volume) 208 10*3/uL 130-400 Automated blood platelet mean volume measurement 11.1 [foz_us] 7.4-10.4 Automated blood neutrophils/100 leukocytes 56 % 42-75 Automated blood lymphocytes/100 leukocytes 35 % 12-44 Blood monocytes/100 leukocytes 7 % 0-12 Automated blood eosinophils/100 leukocytes 2 % 0-10 Automated blood basophils/100 leukocytes 0 % 0-10 Blood neutrophils automated count (number/volume) 5.5 10*3 1.8-7.8 Blood lymphocytes automated count (number/volume) 3.4 10*3 1.0-4.0 Blood monocytes automated count (number/volume) 0. 7 10*3 0.0-1.0 Automated eosinophil count 0.2 10*3/uL 0 .0-0.3 Automated blood basophil count (count/volume) 0.0 10*3/uL 0.0-0.1 PT panel in platelet poor plasma by coag ulation assay - 11/09/19 13:20 Prothrombin time (PT) in platelet poor plasma by coagu lation assay 17.3 s 12.2-14.7 INR in platelet poor plasma or blood by coagulation as say 1.4 0.8-1.4 Activated partial thromboplastin time (a PTT) in platelet poor plasma bycoagulation assay - 11/09/19 13:20 Activated partial thromboplastin time (a PTT) in platelet poor plasma bycoagulation assay 36 s 24-35 Fibrin D-dimer FEU measurement in platel et poor plasma (mass/volume) - 11/09/19 13:20 Fibrin D-dimer FEU measurement in platelet poor plasma (mass/volume) <= ug/mL 0.00-0.49 Comprehensive metabolic panel - 11/09/19 13:20 Serum or plasma sodium measurement (moles/volume) 138 mmol/L 135-145 Serum or plasma potassium measurement (moles/volume) 4.6 mmol/L 3.6-5.0 Serum or plasma chloride measurement (moles/volume) 109 mmol/L 98-107 Carbon dioxide 21 mmol/L 21-32 Serum or plasma anion gap determination (moles/volume) 8 mmol/L 5-14 Serum or plasma urea nitrogen measurement (mass/volume ) 27 mg/dL 7-18 Serum or plasma creatinine measurement (mass/volume) 1.53 mg/dL 0.60-1.30 Serum or plasma urea nitrogen/creatinine mass ratio 18 NRG Serum or plasma creatinine measurement w ith calculation of estimated glomerular filtration rate 44 NRG Serum or plasma glucose measurement (mass/volume) 128 mg/dL 70-105 Serum or plasma calcium measurement (mass/volume) 9.2 mg/dL 8.5-10.1 Serum or plasma total bilirubin measurement (mass/volu me) 0.6 mg/dL 0.1-1.0 Serum or plasma alkaline phosphatase chet surement (enzymatic activity/volume) 214 U/L 40-136 Serum or plasma aspartate aminotransfera se measurement (enzymatic activity/volume) 11 U/L 5-34 Serum or plasma alanine aminotransferase measurement (enzymatic activity/volume) 15 U/L 0-55 Serum or plasma protein measurement (mass/volume) 7.0 g/dL 6.4-8.2 Serum or plasma albumin measurement (mass/volume) 4.3 g/dL 3.2-4.5 CALCIUM CORRECTED 9.0 mg/dL 8.5-10.1 Magnesium - 11/09/19 13:20 Magnesium 2.0 mg/dL 1.6-2.4 Serum or plasma troponin i.cardiac measu rement (mass/volume) - 11/09/19 13:20 Serum or plasma troponin i.cardiac measurement (mass/v olume) < ng/mL <0.028 Myoglobin, serum - 11/09/19 13:20 Myoglobin, serum 56.8 ng/mL 10.0-92.0 Serum or plasma lithium measurement (mol es/volume) - 11/09/19 13:25 BNP PT 771.5 pg/mL <100.0 Complete blood count (CBC) with automate d white blood cell (WBC) differential - 11/10/19 03:50 Blood leukocytes automated count (number/volume) 9.5 10*3/uL 4.3-11.0 Blood erythrocytes automated count (number/volume) 4.67 10*6/uL 4.35-5.85 Venous blood hemoglobin measurement (mass/volume) 12.4 g/dL 13.3-17.7 Blood hematocrit (volume fraction) 39 % 40-54 Automated erythrocyte mean corpuscular volume 84 [ foz_us] 80-99 Automated erythrocyte mean corpuscular h emoglobin (mass per erythrocyte) 27 pg 25-34 Automated erythrocyte mean corpuscular h emoglobin concentration measurement (mass/volume) 32 g/dL 32-36 Automated erythrocyte distribution width ratio 14. 4 % 10.0- 14.5 Automated blood platelet count (count/volume) 189 10*3/uL 130-400 Automated blood platelet mean volume measurement 11.2 [foz_us] 7.4-10.4 Automated blood neutrophils/100 leukocytes 50 % 42-75 Automated blood lymphocytes/100 leukocytes 39 % 12-44 Blood monocytes/100 leukocytes 9 % 0-12 Automated blood eosinophils/100 leukocytes 2 % 0-10 Automated blood basophils/100 leukocytes 0 % 0-10 Blood neutrophils automated count (number/volume) 4.8 10*3 1.8-7.8 Blood lymphocytes automated count (number/volume) 3.7 10*3 1.0-4.0 Blood monocytes automated count (number/volume) 0. 8 10*3 0.0-1.0 Automated eosinophil count 0.2 10*3/uL 0 .0-0.3 Automated blood basophil count (count/volume) 0.0 10*3/uL 0.0-0.1 Comprehensive metabolic panel - 11/10/19 03:50 Serum or plasma sodium measurement (moles/volume) 138 mmol/L 135-145 Serum or plasma potassium measurement (moles/volume) 4.2 mmol/L 3.6-5.0 Serum or plasma chloride measurement (moles/volume) 106 mmol/L 98-107 Carbon dioxide 24 mmol/L 21-32 Serum or plasma anion gap determination (moles/volume) 8 mmol/L 5-14 Serum or plasma urea nitrogen measurement (mass/volume ) 29 mg/dL 7-18 Serum or plasma creatinine measurement (mass/volume) 1.56 mg/dL 0.60-1.30 Serum or plasma urea nitrogen/creatinine mass ratio 19 NRG Serum or plasma creatinine measurement w ith calculation of estimated glomerular filtration rate 43 NRG Serum or plasma glucose measurement (mass/volume) 83 mg/dL 70-105 Serum or plasma calcium measurement (mass/volume) 9.0 mg/dL 8.5-10.1 Serum or plasma total bilirubin measurement (mass/volu me) 0.6 mg/dL 0.1-1.0 Serum or plasma alkaline phosphatase chet surement (enzymatic activity/volume) 193 U/L 40-136 Serum or plasma aspartate aminotransfera se measurement (enzymatic activity/volume) 14 U/L 5-34 Serum or plasma alanine aminotransferase measurement (enzymatic activity/volume) 16 U/L 0-55 Serum or plasma protein measurement (mass/volume) 6.4 g/dL 6.4-8.2 Serum or plasma albumin measurement (mass/volume) 3.8 g/dL 3.2-4.5 CALCIUM CORRECTED 9.2 mg/dL 8.5-10.1 Magnesium - 11/10/19 03:50 Magnesium 1.9 mg/dL 1.6-2.4 Lipid 1996 panel - 11/10/19 03:50 Serum or plasma triglyceride measurement (mass/volume) 105 mg/dL <150 Serum or plasma cholesterol measurement (mass/volume) 124 mg/dL < 200 Serum or plasma cholesterol in HDL measurement (mass/v olume) 37 mg/dL 40-60 Cholesterol in LDL [mass/volume] in serum or plasma by direct assay 74 mg/dL 1-129 Serum or plasma cholesterol in VLDL measurement (mass/ volume) 21 mg/dL 5-40 Automated blood complete blood count (he mogram) panel - 11/11/19 04:15 Blood leukocytes automated count (number/volume) 9.8 10*3/uL 4.3-11.0 Blood erythrocytes automated count (number/volume) 4.95 10*6/uL 4.35-5.85 Venous blood hemoglobin measurement (mass/volume) 13.2 g/dL 13.3-17.7 Blood hematocrit (volume fraction) 41 % 40-54 Automated erythrocyte mean corpuscular volume 83 [ foz_us] 80-99 Automated erythrocyte mean corpuscular h emoglobin (mass per erythrocyte) 27 pg 25-34 Automated erythrocyte mean corpuscular h emoglobin concentration measurement (mass/volume) 32 g/dL 32-36 Automated erythrocyte distribution width ratio 14. 4 % 10.0- 14.5 Automated blood platelet count (count/volume) 195 10*3/uL 130-400 Automated blood platelet mean volume measurement 10.5 [foz_us] 7.4-10.4 Whole blood basic metabolic panel - 03/25 04:15 Serum or plasma sodium measurement (moles/volume) 137 mmol/L 135-145 Serum or plasma potassium measurement (moles/volume) 4.0 mmol/L 3.6-5.0 Serum or plasma chloride measurement (moles/volume) 105 mmol/L 98-107 Carbon dioxide 22 mmol/L 21-32 Serum or plasma anion gap determination (moles/volume) 10 mmol/L 5-14 Serum or plasma urea nitrogen measurement (mass/volume ) 31 mg/dL 7-18 Serum or plasma creatinine measurement (mass/volume) 1.60 mg/dL 0.60-1.30 Serum or plasma urea nitrogen/creatinine mass ratio 19 NRG Serum or plasma creatinine measurement w ith calculation of estimated glomerular filtration rate 42 NRG Serum or plasma glucose measurement (mass/volume) 84 mg/dL 70-105 Serum or plasma calcium measurement (mass/volume) 8.9 mg/dL 8.5-10.1 Arterial blood gas measurement - 0 09:47 Blood pCO2 33 mm[Hg] 35-45 Blood pO2 75 mm[Hg] 79-93 Arterial blood bicarbonate measurement (moles/volume) 23 mmol/L 23-27 Arterial blood base excess by calculation -0.3 mmo l/L -2.5-2.5 Arterial blood oxygen saturation measurement 95 % 94-100 * Inhaled oxygen flow rate ROOM AIR NRG Arterial blood pH measurement with patient temperature correction 7.46 7.37-7.43 Arterial blood carbon dioxide, total measurement (mole s/volume) 24.0 mmol/L 21.0-31.0 Body site RT RAD NRG Assessment of wrist artery patency prior to arterial p uncture YES-POS NRG Setting of ventilation mode NO NR G Measurement of body temperature 37.0 NRG Whole blood basic metabolic panel - 03/25 11:39 Serum or plasma sodium measurement (moles/volume) 135 mmol/L 135-145 Serum or plasma potassium measurement (moles/volume) 3.9 mmol/L 3.6-5.0 Serum or plasma chloride measurement (moles/volume) 103 mmol/L 98-107 Carbon dioxide 20 mmol/L 21-32 Serum or plasma anion gap determination (moles/volume) 12 mmol/L 5-14 Serum or plasma urea nitrogen measurement (mass/volume ) 35 mg/dL 7-18 Serum or plasma creatinine measurement (mass/volume) 2.01 mg/dL 0.60-1.30 Serum or plasma urea nitrogen/creatinine mass ratio 17 NRG Serum or plasma creatinine measurement w ith calculation of estimated glomerular filtration rate 32 NRG Serum or plasma glucose measurement (mass/volume) 159 mg/dL 70-105 Serum or plasma calcium measurement (mass/volume) 9.1 mg/dL 8.5-10.1 BMP - 11/16/19 12:35 GLUCOSE 93 mg/dL 65-99 UREA NITROGEN (BUN) 35 mg/dL 7-25 CREATININE 1.52 mg/dL 0.70-1.18 eGFR NON-AFR. COLOMBIAN 44 mL/min/1.73m2 > OR = 60 eGFR 50 mL/min/1.73m2 > OR = 60 BUN/CREATININE RATIO 23 (calc) 6-22 SODIUM 136 mmol/L 135-146 POTASSIUM 4.7 mmol/L 3.5-5.3 CHLORIDE 106 mmol/L 98-110 CARBON DIOXIDE 23 mmol/L 20-32 CALCIUM 9.1 mg/dL 8.6-10.3 BNP - 11/16/19 12:35 B TYPE NATRIURETIC PEPTIDE (BNP) 221 pg/mL <100 [facility] - 01/19/20 10:45 GLUCOSE 120 mg/dL 65-99 UREA NITROGEN (BUN) 32 mg/dL 7-25 CREATININE 1.46 mg/dL 0.70-1.18 eGFR NON-AFR. COLOMBIAN 45 mL/min/1.73m2 > OR = 60 eGFR 53 mL/min/1.73m2 > OR = 60 BUN/CREATININE RATIO 22 (calc) 6-22 SODIUM 136 mmol/L 135-146 POTASSIUM 4.6 mmol/L 3.5-5.3 CHLORIDE 107 mmol/L 98-110 CARBON DIOXIDE 23 mmol/L 20-32 CALCIUM 8.9 mg/dL 8.6-10.3 Coronavirus SARS-CoV-2 SO 2018 0 12:53 Coronavirus Ab [Units/volume] in Serum Negative Negative Encounters ACCT No. Visit Date/Time Discharge Status Pt. Type Provider Facility Loc./Unit Complaint [id number] 10/10/2017 03:29:00 10/10/2017 06:00: 00 DIS Outpatient [place], [facility] [place] [id number] 10/10/2017 04:43:44 Document Registration [id number] 01/03/2020 07:41:00 23:59:59 CLS Outpatient MIMI HECTOR MD [facility] RAD RENAL INSUFFICIENCY [id number] 11/09/2019 14:36:00 13:30:00 DIS Inpatient SHARIFA YANCEY MD [facility] ICU ACUTE HEART FAILURE,SYM PTOMTIC YO CARDIA [id number] 10/28/2019 08:01:00 09:55:00 DIS Outpatient Anthony HERNANDEZ MD [facility] CATH PERSISTENT AF [id number] 04/15/2019 07:15:00 09:52:00 DIS Outpatient Anthony HERNANDEZ MD [facility] CATH AFIB [id number] 10/06/2018 00:10:00 23:59:59 CLS Preadmit Anthony HERNANDEZ MD [facility] CARD PERSISTENT ATRIAL FIBRI LLATION [id number] 08/05/2018 12:00:00 00:01:00 DIS Outpatient Anthony HERNANDEZ MD [facility] CARD PERSISTENT ATRIAL FIBRI LLATION [id number] 05/28/2018 08:00:00 018 23:59:59 CLS Outpatient Anthony HERNANDEZ MD [facility] CARD CHEST PAIN,FATIGUE [id number] 04/30/2018 09:29:00 018 14:00:00 DIS Outpatient Anthony HERNANDEZ MD [facility] CATH PERSISTENT AFIB [id number] 03/09/2020 07:07:[address] Outpatient Anthony HERNANDEZ MD [facility] CATH PERSISTENT AFIB [id number] 03/06/2020 09:17:[address] Outpatient Anthony HERNANDEZ MD [facility] LABNPT [id number] 12/07/2019 13:00:00 12/07/2019 23:59:5 9 [facility] CHRISTINA BERNARD [id number] 01/19/2020 09:20:00 Document Registration [id number] 11/16/2019 09:20:00 Document Registration [id number] 11/05/2019 10:00:00 Document Registration [id number] 07/08/2019 09:00:00 Document Registration [id number] 07/07/2019 13:20:00 Document Registration
[2020-03-09] MEDS ORDERED: GLYCOPYRROLATE 0.2 MG/ML (ROBINUL) 2 ML VIAL ONE (13:00)
[2020-03-09] MEDS ORDERED: NEOSTIGMINE 3 MG/3 ML VIAL ONE (13:01)
[2020-03-09] MEDS ORDERED: PROTAMINE 50 MG/5 ML VIAL ONE (13:06)
[2020-03-09] MEDS ORDERED: DEXAMETHASONE 10 MG/ML (DECADRON) 1 ML VIAL ONE (13:06)
--- NOTE | 2020-03-09 13:21 | History & Physicial-Cardiolgy ---
HPI-Cardiology Cardiology Consultation: Date of Consultation 03/09/20 Date of Admission Attending Physician Anthony Sr MD Admitting Physician Elke Plata MD Consulting Physician Anthony SR MD HPI: Time Seen by a Provider: 08:00 Chief Complaint: Persistent atrial fibrillation. This is a 79-year-old gentleman with history of symptomatic persistent atrial fibrillation. He is on oral anticoagulation therapy as well as antiarrhythmic therapy. Atrial fibrillation ablation is recommended. He previously required cardioversion. Review of Systems-Cardiology Review of Systems Constitutional: As described under HPI; No As described under HPI, No no symptoms reported, No chills, No fever, No lightheadedness Eyes: No As described under HPI, No no symptoms reported, No blindness, No blurred vision, No contact lenses, No drainage, No decreased acuity, No foreign body sensation, No pain, No vision change Ears/Nose/Throat: No As described under HPI, No no symptoms reported, No chronic hearing loss, No ear discharge, No ear pain, No nasal drainage, No ulcerations Respiratory: No no symptoms reported; As described under HPI; No As described under HPI, No cough, No orthopnea; shortness of breath; No SOB with excertion Cardiovascular: No no symptoms reported; As described under HPI; No As described under HPI, No chest pain, No edema, No irregular heart rate, No lightheadedness, No palpitations Gastrointestinal: No no symptoms reported, No As described under HPI, No abdomen distended, No abdominal pain, No blood streaked bowels, No constipation, No diarrhea, No nausea, No vomiting, No stool coloration changes Genitourinary: No As described under HPI, No burning, No dysuria, No discharge, No frequency, No flank pain, No hematuria, No urgency Skin: No rash, No skin related problems, No ulcerations Psychiatric/Neurological: No anxiety, No depression, No seizure, No focal weakness, No syncope Hematologic: No bleeding abnormalities [id number] Hx Patient Social History Alcohol Use: Denies Use Recreational Drug Use: No Smoking Status: Former Smoker Type Used: Cigarettes 2nd Hand Smoke Exposure: No Recent Foreign Travel: No Immunizations Up To Date Tetanus Booster (TDap): Unknown Date of Pneumonia Vaccine: Sep 15, 2019 Date of Influenza Vaccine: Sep 08, 2019 Past Medical History PMH As described under Assessment. Allergies and Home Medications Allergies Coded Allergies: No Known Drug Allergies (Unverified , 04/30/18) Home Medications Albuterol Sulfate 1 Puff Puff, 2 PUFF IH QID PRN for WHEEZING, (Reported) 1 PUFF = 90 MCG Apixaban 5 Mg Tablet, 5 MG PO BID, (Reported) Cetirizine HCl 10 Mg Tablet, 10 MG PO DAILY, (Reported) Flecainide Acetate 50 Mg Tablet, 50 MG PO BID, (Reported) Fluoxetine HCl 20 Mg Capsule, 20 MG PO 1600, (Reported) Furosemide 20 Mg Tablet, 20 MG PO 1000, (Reported) Losartan Potassium 100 Mg Tablet, 100 MG PO DAILY, (Reported) Potassium Chloride 10 Meq Tab.er.prt, 10 MEQ PO 1000, (Reported) Tamsulosin HCl 0.4 Mg Cap, 0.4 MG PO 1600, (Reported) Umeclidinium [place] 62.5 Mcg Blst.w.dev, 1 PUFF IH DAILY@0800 Prescribed by: SHARIFA YANCEY on 11/11/19 1222 Patient Home Medication List Home Medication List Reviewed: Yes Physical Exam-Cardiology Physical Exam Vital Signs/I&O 03/09/20 07:34 Temp 36.2 Pulse 63 Resp 18 B/P (MAP) 155/80 (105) Pulse Ox 99 O2 Delivery Room Air Capillary Refill : Constitutional: appears stated age, AAO x 3; No apparent distress; well- developed, well-nourished HEENT: PERRL; No discharge; hearing is well preserved, oral hygience is good; No ulceration, No xanthelasmas are seen Neck: No carotid bruit; carotid pulses are 2 + bilaterally Respiratory: chest is bilaterally symmetric, lungs clear to auscultation Cardiovascular: regular rate-rhythm, S1 and S2 Gastrointestinal: soft, audible bowel sounds; No spleenomegaly Rectal: deferred Extremities: normal range of motion, non-tender, normal inspection; No clubbing, No cyanosis; no lower extremity edema bilateral; No significant edema Neurologic/Psychiatric: no motor/sensory deficits, alert, normal mood/affect, oriented x 3, power is 5/5 both on sides Skin: normal color, warm/dry; No rash, No ulcerations Data Review Labs Laboratory Tests 03/09/20 07:40: White Blood Count 9.0, Red Blood Count 4.59, Hemoglobin 13.3, Hematocrit 40, Mean Corpuscular Volume 88, Mean Corpuscular Hemoglobin 29, Mean Corpuscular Hemoglobin Concent 33, Red Cell Distribution Width 15.0H, Platelet Count 182, Mean Platelet Volume 10.9H, Prothrombin Time 16.0H, INR Comment 1.2, Activated Partial Thromboplast Time 32, Sodium Level 137, Potassium Level 4.6, Chloride Level 108H, Carbon Dioxide Level 22, Anion Gap 7, Blood Urea Nitrogen 26H, Creatinine 1.39H, Estimat Glomerular Filtration Rate 49, BUN/Creatinine Ratio 19, Glucose Level 92, Calcium Level 9.0, Corrected Calcium 9.0, Total Bilirubin 0.7, Aspartate Amino Transf (AST/SGOT) 18, Alanine Aminotransferase (ALT/SGPT) 16, Alkaline Phosphatase 176H, Total Protein 6.8, Albumin 4.0 ECG Impression ECG Initial ECG Rhythm: Normal Sinus A/P-Cardiology Assessment/Admission Diagnosis Symptomatic persistent atrial fibrillation refractory to flecainide therapy. Admission Status: Observation Plan Atrial fibrillation ablation is recommended. Anthony SR MD Mar 09, 2020 13:21
--- NOTE | 2020-03-09 13:21 | Electrophysiology Procedure ---
EP Procedure Persistent atrial fibrillation ablation operative report. DATE OF SERVICE:03/09/20 CARDIAC LUSTER APPLICATOR: Reji Sr MD, [facility] INDICATION: Symptomatic persistent atrial fibrillation refractory to drug t herapy. PREOPERATIVE DIAGNOSIS: Symptomatic persistent atrial fibrillation refractory to drug therapy. POSTOPERATIVE DIAGNOSES: Successful persistent atrial fibrillation ablation. HISTORY: This is a 79-year-old gentleman with history of symptomatic persistent atrial fibrillation refractory to drug therapy. Previously required cardioversion. The patient is planned for comprehensive EP study and ablation. PROCEDURE PERFORMED: 1. Comprehensive EP study with induction. 2. Fluoroscopy. 3. Left atrial pacing and recording. 4. Drug infusion. 5. Left ventricular pacing and recording. 6. Comprehensive 3D mapping with the carto system. 7. Pulmonary vein isolation. 8. Intracardiac echocardiogram. 9. Additional atrial fibrillation ablation; CFAE ablation. 10. Additional atrial fibrillation ablation; roofline. COMPLICATION: None. ESTIMATED BLOOD LOSS: 10 mL. CONTRAST USED: None. FLUOROSCOPY TIME: 7.55 minutes. FLUOROSCOPY DOSE: 272 mgy SPECIMENS: None. ANESTHESIA: Done by our anesthesia colleagues. ANTICOAGULATION: Uninterrupted Eliquis and IV heparin. PROCEDURE IN DETAIL: After informed consent was taken, the patient was brought to the EP lab. Anesthesia was provided by our anesthesia colleagues. The patient was draped and prepped in the usual sterile fashion. The patient presented to the EP lab in sinus rhythm.3D mapping was done with Carto system. Left atrial pacing and recording was also done. Access was gained in the right femoral vein with one 8-Guyanese and one 7 Guyanese sheath. Left access in left femoral vein was gained with one 12 Guyanese sheath and another 6 Guyanese sheath. His catheter was placed through the left 6 Guyanese sheath and a CS catheter was placed through the right 7 Guyanese sheath. Intracardiac echocardiogram was performed with an ICE catheter which was advanced through the 12 Guyanese sheath. Numerous images were taken of the RV, RA, left atrium and LV. There was no pericardial effusion. All 4 pulmonary veins were identified. A carto-sound map was created with the ice catheter. We then advanced a guidewire into the superior vena cava. A long sheath was advanced with the transseptal needle. Under fluoroscopic and echocardiogram guidance, transseptal puncture was done once through the fossa ovalis. Left atrial pressure was documented. IV heparin bolus was given followed by heparin infusion. ACT target over 350 seconds. Patient was on uninterrupted oral anticoagulation therapy. The transseptal needle was taken out and a PENTARAY mapping catheter was utilized to perform voltage mapping of the left atrium. Once 3-D mapping was completed, the Pentaray catheter was taken out and we advanced an irrigated ablation catheter. We then proceeded with pulmonary vein isolation. Pulmonary vein isolation was performed for the left pulmonary veins. Exit block was confirmed. We then proceeded to the right pulmonary vein. Exit block was again confirmed with high output pacing in each vein and demonstrating dissociation of the left atrium. No atrial fibrillation was induced without Isuprel. Isuprel was started at high dose. Rapid atrial pacing induced organized atrial fibrillation. We took out the ablation catheter and went in with the pentaray catheter again. Activation mapping was done since the differential for organized atrial fibrillation was atrial flutter. No early meets late was noted therefore the diagnosis was very likely organized atrial fibrillation. To organized atrial fibrillation subsequently degenerated to this organized atrial fibrillation. CFAE mapping was done. Areas of complex fractionated electrograms were tagged and subsequently ablated. Atrial fibrillation continued, roofline was done. While performing extra ablation lines, Atrial fibrillation spontaneously converted to junctional rhythm. After a few minutes Converted to sinus rhythm. Comprehensive EP study was done. Left ventricular pacing and recording did not demonstrate any left-sided bypass tract. After 30 minutes, we rechecked all the 4 pulmonary veins and demonstrated exit block despite high output pacing. Final intracardiac echocardiogram images demonstrated no pericardial effusion. All the sheaths were taken out. 20 mg of IV protamine. Decadron 4 mg IV will be given. Figure of 8 sutures were done in both venous access and manual compression done for 5 minutes. Hemostasis was achieved. Patient tolerated the procedure well and did not have any complications. The patient left the EP lab in sinus rhythm. Total ablation time 31 minutes and 7 seconds. MEASUREMENTS/EP STUDY: AH interval 95 ms, AA interval 1151 ms, HV interval 76 ms, NC interval 204 ms, QRS duration 97 ms, QT interval 453 ms, AV Wenckebach when pacing at 430 ms, Retrograde Wenckebach when pacing at 590 ms, this was done with the ablation catheter in the LV. Atrial ERP was 600/300 ms. Left atrial pacing and recording did not demonstrate a left lateral bypass tract. PLAN: The patient will be observed overnight and will be discharged home tomorrow with precise followup instructions. Reji Sr MD, [facility] Cardiac Electrophysiology Anthony SR MD Mar 09, 2020 13:21
[2020-03-09] MEDS ORDERED: PATIENT MAY USE OWN MEDS, ALL PO SCH (13:30)
[2020-03-09] MEDS ORDERED: ONDANSETRON 4 MG/2 ML (SDV) Z0FRAN IVP PRN (14:00)
[2020-03-09] MEDS ORDERED: HYDROmorphone 2 MG/ML VIAL (DILAUDID) IV ONE (14:00)
[2020-03-09] MEDS ORDERED: HYDROmorphone 2 MG/ML VIAL (DILAUDID) ONE (14:05)
[2020-03-09] MEDS: NS IV 1000 ML 1,000 ML IV SCH (14:25)
--- NOTE | 2020-03-09 14:50 | NUR ---
YAHIRDAVIEE Fran admitted to room CU8-1, with an admitting diagnosis of S/P LEFT EP, on from PACU via CART, accompanied by STAFF.RADHA SINCLAIR introduced to surroundings, call light, bed controls, phone, TV, temperature control, lights, meal times, smoking policy, visitor policy, side rail policy, bathrooms and showers. Patient Rights given to patient in the handbook. RADHA SINCLAIR verbalizes understanding that [facility] is not responsible for the loss or damage to any personal effects or valuables that are kept in the patients posession during their hospitalization. The following Patient Care Plans were discussed with the PT: Discharge Planning, POTENITAL FOR FALLS,HIGH RISK INJURY, and KNOWLEDGE DEFICIT. RADHA SINCLAIR verbalizes understanding of Interdisciplinary Patient Education. Patient and family were informed about the Rapid Response Team and its purpose.
[2020-03-09] MEDS ORDERED: APAP 325 MG/10.15 ML LIQ (TYLENOL) UDC PO PRN (20:45)
[2020-03-09] MEDS: APIXABAN 5 MG (ELIQUIS) TABLET PO SCH (20:48)
[2020-03-09] MEDS: ACETAMINOPHEN 325 MG TABLET PO PRN (20:48)
[2020-03-10] VITALS (10 sets, daily range): BP systolic 141–169; BP diastolic 49–92
[2020-03-10] MEDS: NS IV 1000 ML 1,000 ML IV SCH (00:26)
[2020-03-10 03:21] LABS: HEMOGLOBIN 11.5 G/DL (13.3-17.7); MEAN PLATELET VOLUME 10.7 FL (7.4-10.4); RED CELL DISTRIBUTION WIDTH 14.8 % (10.0-14.5); WHITE BLOOD COUNT 10.6 10^3/uL (4.3-11.0)
[2020-03-10 03:41] LABS: BUN/CREATININE RATIO 21; CALCIUM 7.8 MG/DL (8.5-10.1); CARBON DIOXIDE 19 MMOL/L (21-32); CHLORIDE 110 MMOL/L (98-107); CREATININE SERUM 1.14 MG/DL (0.60-1.30); GFR ESTIMATED > 60; GLUCOSE 132 MG/DL (70-105); POTASSIUM 4.8 MMOL/L (3.6-5.0); SODIUM 136 MMOL/L (135-145)
[2020-03-10] MEDS: ACETAMINOPHEN 325 MG TABLET PO PRN (04:47)
[2020-03-10] MEDS: APIXABAN 5 MG (ELIQUIS) TABLET PO SCH (07:47)
--- NOTE | 2020-03-10 09:38 | NUR ---
RADHA SINCLAIR Fran demonstrates understanding of discharge instructions and accurately returns instructions upon questioning. Copy of Post-Discharge Instructions and Medication Discharge Instructions given to PT. RADHA SINCLAIR Fran is able to manage continuing needs after discharge. Patients belongings returned to PT. Skin dry and intact; no breakdown noted. Patient discharged from [facility]- on 03/10/20 at 0938. RADHA SINCLAIR left floor via , accompanied by STAFF.
--- NOTE | 2020-03-10 10:52 | Anesthesia-General Post-Op ---
General Patient Condition Mental Status/LOC: Same as Preop Cardiovascular: Satisfactory Nausea/Vomiting: Absent Respiratory: Satisfactory Pain: Controlled Complications: Absent Post Op Complications Complications None Follow Up Care/Instructions Patient Instructions None needed. Anesthesia/Patient Condition Patient Condition Patient is already discharged to home but he was doing well, no complaints, stable vital signs, no apparent adverse anesthesia problems prior to his discharge per nursing staff. BRYON CORBIN DO Mar 10, 2020 10:52
--- NOTE | 2020-03-10 13:31 | Cardiology Discharge Summary ---
Diagnosis/Chief Complaint Date of Admission 03/09/2020 Date of Discharge 03/10/2020 Admission Diagnosis Persistent atrial fibrillation refractory to medical therapy Final/Discharge Diagnosis Persistent atrial fibrillation, status post ablation Chief Complaint/HPI Chief Complaint/HPI This is a 79-year-old gentleman with history of symptomatic persistent atrial fibrillation. He is on oral anticoagulation therapy as well as antiarrhythmic therapy. Atrial fibrillation ablation is recommended. He previously required cardioversion. Discharge Summary Procedures Pulmonary vein isolation. On Isuprel organized atrial fibrillation induced, CFAE and roofline done. Spontaneously converted to sinus rhythm. Discharge Physical Examination Normal cardiovascular examination. Hospital Course Was the Problem List Reviewed?: Yes Unremarkable. Discussion & Recommendations Discussion Discharge took over 30 minutes to complete. I discussed at length with the patient's and the patient about the procedure done yesterday including pul monary vein isolation, complex fractionated atrial electrogram ablation and the roofline. He will continue antiarrhythmic therapy as well as Eliquis. I will see him in the office in one to 2 weeks. Follow up appt.: Dr. Sr in 2 weeks. Dicharge Diet: Cardiac Diet Activity as Tolerated: Yes Home Medications Reviewed patient Home Medication Reconciliation performed by pharmacy medication reconciliations agricultural engineering technician and/or nursing. Patients Allergies have been reviewed. Discharge Home Medications: Reviewed and agree with Discharge Medication list on patient's Discharge Instruction sheet Condition at discharge Stable. Instructions to patient/family Discussed at length with the patient and family. Anthony SR MD Mar 10, 2020 13:31
== END 2020-03-10 09:38 | disposition home or self-care (01) ==
LOC: CATH 07:07 → ICU 13:44 → CATH 03-10 09:38
PROVIDERS: ATTEND Internal Medicine Interventional Cardiology
DX: I48.19 Other persistent atrial fibrillation (principal); Z79.01 Long term (current) use of anticoagulants; Z87.891 Personal history of nicotine dependence; Z79.899 Other long term (current) drug therapy
CPT/HCPCS: 36415; 80048; 80053; 85027; 85610; 85730; 87081; 93005; 93613; 93622; 93656; 93662

== ENCOUNTER → 2020-04-13 | Outpatient (CLI) | payer MEDICARE ==
[~2020-04-13] VITALS: Ht 173 cm; Wt 126.0 kg
[~2020-04-13] MED LIST changes: +CATHETER FLUSH 10 ML SYR IV PRN; +REGADENOSON 0.4 MG/5 ML SYR (LEXISCAN) IV ONE
[2020-04-13 12:26] VITALS: BP 161/82
--- NOTE | 2020-04-13 15:10 | Cardiology Stress Test Report ---
Stress Test Report Type of NM Stress Test: Test Type: LEXISCAN 0.4MG/5ML Date of Procedure/Referring: Date of Procedure: Apr 13, 2020 PCP Anthony Sr MD Admitting Physician Elke Plata MD Indications: Precordial pain, hypertension, hyperlipidemia, persistent atrial fibrillation Baseline Heart Rate: 50 Baseline Blood Pressure: Blood Pressure Systolic: 161 Blood Pressure Diastolic: 82 Summary & Conclusion: Summary: The patient was brought to the stress lab after informed consent was taken. Stress test was performed according to the Lexiscan protocol. 0.4 mg of IV Lexiscan was given. Low-grade exercise was performed. Initial heart rate of 50 BPM and blood pressure 185/68 mmHg. Maximum heart rate of 83 bpm and blood pressure 168/76 mmHg. Patient did not have any chest pain, arrhythmias or ST segment changes during the stress test. 10.84 mCi of Myoview were given for rest imaging and 32.8 mCi of Myoview given for stress imaging. Transient ischemic dilatation score 1.11, EF 64 percent. Normal wall motion. Normal myocardial perfusion imaging during rest and stress. Conclusion: Pharmacological stress test was negative for ischemia. Normal LV function with no wall motion abnormalities. Normal myocardial perfusion imaging during rest and stress. Anthony SR MD Apr 13, 2020 15:10
== END ==
LOC: CARD 10:49
PROVIDERS: ATTEND Internal Medicine Interventional Cardiology
DX: I48.19 Other persistent atrial fibrillation (principal); I10 Essential (primary) hypertension; E78.5 Hyperlipidemia, unspecified; I49.3 Ventricular premature depolarization; E66.01 Morbid (severe) obesity due to excess calories
CPT/HCPCS: 78452; 93017

== ENCOUNTER → 2020-04-14 | Outpatient (CLI) | payer MEDICARE ==
[~2020-04-14] MED LIST changes: -CATHETER FLUSH 10 ML SYR IV PRN; -REGADENOSON 0.4 MG/5 ML SYR (LEXISCAN) IV ONE
== END ==
LOC: CARD 08:55
PROVIDERS: ATTEND Internal Medicine Interventional Cardiology
DX: I48.19 Other persistent atrial fibrillation (principal); I11.9 Hypertensive heart disease without heart failure; E78.5 Hyperlipidemia, unspecified; I49.3 Ventricular premature depolarization; E66.01 Morbid (severe) obesity due to excess calories
CPT/HCPCS: 93306

== ENCOUNTER 2020-10-17 13:41 | Outpatient (CLI) | payer MEDICARE, OTHER ==
[~2020-10-17 13:41] MED LIST changes: +AMLO-251 PO; -AMLO10TA7 PO
== END 2020-10-17 14:10 | disposition home or self-care (01) ==
LOC: SLEEP 13:41
PROVIDERS: ATTEND Nurse Practitioner Family
DX: G47.33 Obstructive sleep apnea (adult) (pediatric) (principal); I12.9 Hypertensive chronic kidney disease with stage 1 through stage 4 chronic kidney disease, or unspecified chronic kidney disease; N18.31 Chronic kidney disease, stage 3a; J44.9 Chronic obstructive pulmonary disease, unspecified; I48.91 Unspecified atrial fibrillation

== ENCOUNTER → 2021-10-22 | Outpatient (CLI) | payer MEDICARE ==
[~2021-10-22] MED LIST changes: -FLUO20CA46 PO; +FLUO20CA48 PO; -POTA10TA36 PO; +POTA10TA37 PO
== END ==
LOC: CARD 10:00
PROVIDERS: ATTEND Internal Medicine Cardiovascular Disease
DX: I08.2 Rheumatic disorders of both aortic and tricuspid valves (principal); I11.9 Hypertensive heart disease without heart failure; I25.10 Atherosclerotic heart disease of native coronary artery without angina pectoris
CPT/HCPCS: 93306

== ENCOUNTER 2022-04-09 23:29 | Inpatient (IN) | payer MEDICARE ==
[~2022-04-09] VITALS: Ht 170 cm; Wt 115.0 kg
[2022-04-09] MEDS ORDERED: ASPIRIN 81 MG CHEW (CHILDREN'S ASA) PO ONE (23:45)
[2022-04-09] MEDS ORDERED: NITROGLYCERIN 0.4 MG SL TABS BTL 25'S SL PRN (23:45)
[2022-04-10] VITALS (9 sets, daily range): BP systolic 136–183; BP diastolic 60–80
[2022-04-10 00:10] LABS: BASOPHILS % (AUTO) 0 % (0-10); EOSINOPHILS # (AUTO) 0.1 10^3/uL (0.0-0.3); EOSINOPHILS % (AUTO) 1 % (0-10); HEMATOCRIT 35 % (40-54); LYMPHOCYTES # (AUTO) 2.1 10^3/uL (1.0-4.0); LYMPHOCYTES % (AUTO) 21 % (12-44); MEAN CORPUSCULAR HEMOGLOBIN 28 pg (25-34); MEAN CORPUSCULAR HGB CONC 31 g/dL (32-36); MEAN CORPUSCULAR VOLUME 88 fL (80-99); MEAN PLATELET VOLUME 10.2 fL (9.0-12.2); MONOCYTES # (AUTO) 0.8 10^3/uL (0.0-1.0); MONOCYTES % (AUTO) 8 % (0-12); NEUTROPHILS % (AUTO) 70 % (42-75); PLATELET COUNT 213 10^3/uL (130-400); WHITE BLOOD COUNT 10.1 10^3/uL (4.3-11.0)
[2022-04-10] MEDS ORDERED: PANTOPRAZOLE 40 MG (PROTONIX) VIAL IV ONE (00:15)
[2022-04-10 00:24] LABS: INR 1.3 (0.8-1.4); PROTHROMBIN TIME PATIENT 16.5 SEC (12.2-14.7)
[2022-04-10 00:25] LABS: POTASSIUM 4.3 MMOL/L (3.6-5.0)
[2022-04-10 00:26] LABS: CALCIUM 9.1 MG/DL (8.5-10.1)
[2022-04-10 00:28] LABS: TOTAL PROTEIN 6.5 GM/DL (6.4-8.2)
[2022-04-10 00:29] LABS: BILIRUBIN,TOTAL 0.7 MG/DL (0.1-1.0)
[2022-04-10 00:31] LABS: CREATININE SERUM 1.72 MG/DL (0.60-1.30)
[2022-04-10 00:34] LABS: MAGNESIUM 2.3 MG/DL (1.6-2.4)
[2022-04-10 00:42] LABS: CREATINE KINASE MB 3.8 NG/ML (<6.6)
--- NOTE | 2022-04-10 01:00 | ED GI ---
General Chief Complaint: Abdominal/GI Problems Stated Complaint: CP Source of Information: Patient (SOMEWHAT LIMITED HISTORIAN AND VERY HARD OF HEARING, BUT TALKS NON-STOP AT LENGTH VERY LOUDLY) History of Present Illness Date Seen by Provider: Apr 09, 2022 Time Seen by Provider: 23:42 Initial Comments PT ARRIVES VIA POV FROM HOME WITH STATES HE HAS BEEN HAVING NAUSEA AND "DRY HEAVES" FOR THE LAST 5 WEEKS STATES IT HAS BEEN MUCH WORSE FOR THE LAST SEVERAL DAYS AND IS MUCH WORSE TODAY STATES HE CAN'T KEEP ANYTHING DOWN, STATES EVEN ICE CHIPS IMMEDIATELY COME RIGHT BACK UP. ONLY FOOD INTAKE TODAY, WAS THIS MORNING WHEN HE TOOK A FEW BITES OF TOAST AND IT ALL CAME BACK UP STATES HE CAN'T KEEP DOWN HIS REGULAR MEDICATIONS STATES IT FEELS LIKE THINGS ARE STUCK IN HIS "FOOD TUBE" C/O EPIGASTRIC AND UPPER CHEST DISCOMFORT HAD NORMAL BM TODAY NO URINARY SYMPTOMS NO SHORTNESS OF BREATH NO COUGHING NO FEVER/SWEATS/CHILLS PT HAD GASTRIC BYPASS SURGERY MANY YEARS AGO IN [place]. DOES NOT RECALL EVER HAVING ANY TYPE OF EGD PCP: DR. MALDONADO SOL AT [facility] LICENSE ISSUER: DR. HINSON Allergies and Home Medications Allergies Coded Allergies: No Known Drug Allergies (Unverified , 04/30/18) Patient Home Medication List Home Medication List Reviewed: Yes Albuterol Sulfate (Proair Hfa) 1 Puff Puff, 2 PUFF IH QID PRN for WHEEZING, (Reported) Entered as Reported by: ROBBIE GIRON on 11/10/19 1209 Apixaban (Eliquis) 5 Mg Tablet, 5 MG PO BID, (Reported) Entered as Reported by: MARIAM ZHANG on 04/30/18 1050 Cetirizine HCl (Cetirizine HCl) 10 Mg Tablet, 10 MG PO DAILY, (Reported) Entered as Reported by: MARIAM ZHANG on 04/30/18 1050 Flecainide Acetate (Flecainide Acetate) 50 Mg Tablet, 50 MG PO BID, (Reported) Entered as Reported by: ROBBIE GIRON on 11/10/19 1209 Fluoxetine HCl (Fluoxetine HCl) 20 Mg Capsule, 20 MG PO 1600, (Reported) Entered as Reported by: ROBBIE GIRON on 11/10/19 1209 Furosemide (Furosemide) 20 Mg Tablet, 20 MG PO 1000, (Reported) Entered as Reported by: ROBBIE GIRON on 11/10/19 1209 Losartan Potassium (Losartan Potassium) 100 Mg Tablet, 100 MG PO DAILY, (Reported) Entered as Reported by: MARIAM ZHANG on 04/30/18 1052 Potassium Chloride (Potassium Chloride) 10 Meq Tab.er.prt, 10 MEQ PO 1000, (Reported) Entered as Reported by: MARIAM ZHANG on 04/30/18 1050 Tamsulosin HCl (Flomax) 0.4 Mg Cap, 0.4 MG PO 1600, (Reported) Entered as Reported by: ROBBIE GIRON on 11/10/19 1209 Umeclidinium [place] (Incruse Ellipta) 62.5 Mcg Blst.w.dev, 1 PUFF IH DAILY@0800 Prescribed by: SHARIFA YANCEY on 11/11/19 1222 Review of Systems Review of Systems Constitutional: no symptoms reported EENTM: No Symptoms Reported Respiratory: No Symptoms Reported, Other (STATES HE HAS A "PAIN PATCH" ON HIS RIGHT SIDE "BECAUSE OF MY LUNG-STATES HE IS SUPPOSED TO SEE A LUNG SPECIALIST, BUT DOES NOT HAVE AN APPOINTMENT YET. ) Cardiovascular: See HPI Gastrointestinal: See HPI Genitourinary: No Symptoms Reported Musculoskeletal: no symptoms reported Skin: no symptoms reported Psychiatric/Neurological: No Symptoms Reported Endocrine: No Symptoms Reported Hematologic/Lymphatic: No Symptoms Reported Past Ogmtxei-Izuvlv-Pzmnld Hx Patient Social History Tobacco Use?: Yes Tobacco type used: Cigarettes Smoking Status: Former Smoker Use of E-Cig and/or Vaping dev: No Substance use?: No Alcohol Use?: Yes Pt feels they are or have been: No Immunizations Up To Date Tetanus Booster (TDap): Unknown Influenza Vaccine Up-to-Date: Yes; Up-to-Date First/Initial COVID19 Vaccinat: 2020 Second COVID19 Vaccination Ashish: 2020 Third COVID19 Vaccination Date: 2020 Past Medical History Surgery/Hospitalization HX: A-FIB, HTN, CHF, COPD, SLEEP APNEA Surgeries: Yes (loop recorder, cardioversion) Abdominal, Cardiac, Tonsillectomy Respiratory: Yes Asthma, Sleep Apnea, COPD Currently Using CPAP: No Cardiac: Yes (CHF; PACER/DEFIB; CARDIOVERSIONS AND ABLATION FOR A FIB. ) Atrial Fibrillation, Hypertension, Irregular Heartbeat Neurological: No Genitourinary: Yes (CHRONIC RENAL ISUFFICIENCY. ) Prostate Problems, Renal Failure Gastrointestinal: No (S/P GASTRIC BYPASS) Musculoskeletal: No Endocrine: Yes (OBESITY) HEENT: Yes (EDENTULOUS. VERY HARD OF HEARING) Hearing Impairment: Hard of Hearing, Bilateral Hearing Aide Cancer: No Psychosocial: No Integumentary: No Blood Disorders: No Family Medical History No Pertinent Family Hx SOCIAL HISTORY: -SMOKED 2 PPD, QUIT 25 YEARS AGO -ETOH--HISTORY OF VERY HEAVY USE, STATES NOW HE ONLY DRINKS "OCCASIONALLY" -DENIES DRUG USE PAST SURGICAL HISTORY: -GASTRIC BYPASS -CARDIOVERSIONS FOR ATRIAL FIBRILLATION -CARDIAC ABLATION 03/[address] HERNANDEZ -LOOP RECORDER. -PACEMAKER/DEFIBRILLATOR -TONSILLECTOMY Physical Exam Vital Signs Vital Signs - First Documented 04/09/22 23:38 Temp 36.9 Pulse 83 Resp 17 B/P (MAP) 134/87 (103) Pulse Ox 98 O2 Delivery Room Air Capillary Refill : Height/Weight/BMI Height: 5'7.00" Weight: 279lbs. 0.0oz. 126.534171yx; 42.09 BMI Method: General Appearance: WD/WN, no apparent distress, obese HEENT: PERRL/EOMI, other (EDENTULOUS) Neck: normal inspection Respiratory: normal breath sounds, no respiratory distress, no accessory muscle use Cardiovascular: regular rate, rhythm, no murmur Gastrointestinal: normal bowel sounds, soft, tenderness (MILD EPIGASTRIC TENDERNESS. 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 Progress/Results/Core Measures Results/Orders Lab Results Laboratory Tests Test 04/10/22 00:00 Range/Units White Blood Count 10.1 4.3-11.0 10^3/uL Red Blood Count 4.00 L 4.30-5.52 10^6/uL Hemoglobin 11.0 L 13.3-17.7 g/dL Hematocrit 35 L 40-54 % Mean Corpuscular Volume 88 80-99 fL Mean Corpuscular Hemoglobin 28 25-34 pg Mean Corpuscular Hemoglobin Concent 31 L 32-36 g/dL Red Cell Distribution Width 15.8 H 10.0-14.5 % Platelet Count 213 130-400 10^3/uL Mean Platelet Volume 10.2 9.0-12.2 fL Immature Granulocyte % (Auto) 0 % Neutrophils (%) (Auto) 70 42-75 % Lymphocytes (%) (Auto) 21 12-44 % Monocytes (%) (Auto) 8 0-12 % Eosinophils (%) (Auto) 1 0-10 % Basophils (%) (Auto) 0 0-10 % Neutrophils # (Auto) 7.0 1.8-7.8 10^3/uL Lymphocytes # (Auto) 2.1 1.0-4.0 10^3/uL Monocytes # (Auto) 0.8 0.0-1.0 10^3/uL Eosinophils # (Auto) 0.1 0.0-0.3 10^3/uL Basophils # (Auto) 0.0 0.0-0.1 10^3/uL Immature Granulocyte # (Auto) 0.0 0.0-0.1 10^3/uL Prothrombin Time 16.5 H 12.2-14.7 SEC INR Comment 1.3 0.8-1.4 Activated Partial Thromboplast Time 37 H 24-35 SEC D-Dimer 0.20 0.00-0.49 UG/ML Sodium Level 140 135-145 MMOL/L Potassium Level 4.3 3.6-5.0 MMOL/L Chloride Level 110 H 98-107 MMOL/L Carbon Dioxide Level 16 L 21-32 MMOL/L Anion Gap 14 5-14 MMOL/L Blood Urea Nitrogen 39 H 7-18 MG/DL Creatinine 1.72 H 0.60-1.30 MG/DL Estimat Glomerular Filtration Rate 40 BUN/Creatinine Ratio 23 Glucose Level 92 70-105 MG/DL Calcium Level 9.1 8.5-10.1 MG/DL Corrected Calcium 9.1 8.5-10.1 MG/DL Magnesium Level 2.3 1.6-2.4 MG/DL Total Bilirubin 0.7 0.1-1.0 MG/DL Aspartate Amino Transf (AST/SGOT) 18 5-34 U/L Alanine Aminotransferase (ALT/SGPT) 15 0-55 U/L Alkaline Phosphatase 139 H 40-136 U/L Total Creatine Kinase 181 30-200 U/L Creatine Kinase MB 3.8 <6.6 NG/ML Myoglobin 262.7 H 10.0-92.0 NG/ML Troponin I < 0.028 <0.028 NG/ML B-Type Natriuretic Peptide 56.0 <100.0 PG/ML Total Protein 6.5 6.4-8.2 GM/DL Albumin 4.0 3.2-4.5 GM/DL Amylase Level 66 25-125 U/L Lipase 13 8-78 U/L My Orders Orders - NAKUL KIMBALL DO Ed Iv/Invasive Line Start (04/09/22 23:42) Ekg Tracing (04/09/22 23:42) O2 (04/09/22 23:42) Monitor-Rhythm Ecg Trace Only (04/09/22 23:42) Cbc With Automated Diff (04/09/22 23:42) Magnesium (04/09/22 23:42) Ekg Tracing (04/09/22 23:42) Comprehensive Metabolic Panel (04/09/22 23:42) Myoglobin Serum (04/09/22 23:42) Protime With Inr (04/09/22 23:42) Partial Thromboplastin Time (04/09/22 23:42) O2 (04/09/22 23:42) Ed Iv/Invasive Line Start (04/09/22 23:42) Creatine Kinase (04/09/22 23:42) Creatine Kinase Mb (04/09/22 23:42) Lipase (04/09/22 23:42) Amylase (04/09/22 23:42) Bnp Amaury (04/09/22 23:42) Fibrin Degradation Products (04/09/22 23:42) Troponin I Amaury (04/09/22 23:42) Nitroglycerin 0.4 Mg Btl 25's (Nitrostat (04/09/22 23:45) Aspirin Chewable Tablet (Baby Aspirin Ch (04/09/22 23:45) Chest 1 View, Ap/Pa Only (04/10/22 00:01) Ct Chest/Abdomen/Pelvis Wo (04/10/22 00:01) Pantoprazole Injection (Protonix Injecti (04/10/22 00:15) Medications Given in ED Current Medications Medications Dose Ordered Sig/Joellen Route Start Time Stop Time Status Last Admin Dose Admin Pantoprazole 40 mg ONCE ONCE IV 04/10/22 00:15 04/10/22 00:16 DC 04/10/22 00:37 40 MG Vital Signs/I&O 04/09/22 23:38 Temp 36.9 Pulse 83 Resp 17 B/P (MAP) 134/87 (103) Pulse Ox 98 O2 Delivery Room Air Progress Progress Note : Progress Note GIVEN ZOFRAN AND PROTONIX PT CONTINUES TO RETCH AND SPIT UP CLEAR LIQUID AND SALIVA. Initial ECG Impression Date: Apr 09, 2022 Initial ECG Impression Time: 23:45 Initial ECG Rate: 75 Initial ECG Rhythm: Normal Sinus (OCC PVC) Diagnostic Imaging Comments CXR--NO ACUTE PROCESS, PENDING RADIOLOGIST REVIEW CT CHEST/ABDOMEN/PELVIS--PER [facility] VIA FAX AT 0040 -RETAINED FLUID IN A MILDLY DISTENDED ESOPHAGUS, WHICH EXTENDS NEARLY TO THE THORACIC INLET. -NO EVIDENCE OF ASPIRATION PNEUMONIA OR OTHER PULMONARY ABNORMALITY -PROBABLE MILD DIVERTICULITIS OF SIGMOID COLON. -NO SMALL BOWEL OBSTRUCTION Reviewed: Reviewed by Me Departure Communication (Admissions) 0053--SPOKE WITH DR. DIA, SURGEON, HE WILL REVIEW CT SCAN AND CALL ME BACK [phone]--SPOKE WITH DR. DIA, HE ADVISES TO ADMIT TO MEDICINE, ADVISES TO PLACE NG TUBE TO MID ESOPHAGUS AND DO NOT PASS INTO THE STOMACH. HE PLANS TO DO EGD IN AM 0123--SPOKE WITH DR. YANCEY, ACCEPTS PT FOR ADMIT. Impression Primary Impression: Esophageal obstruction Additional Impressions: History of gastric bypass COPD (chronic obstructive pulmonary disease) Hypertension Disposition: ADMITTED INPATIENT Condition: Stable Admissions Decision to Admit Reason: Admit from ER (General) Decision to Admit/Date: Apr 10, 2022 Time/Decision to Admit Time: 01:20 Departure-Patient Inst. Referrals: JANNY MAHARAJ MD (PCP) Primary Care Physician CHRISTINA BERNARD APRN (Family) Primary Care Physician NAKUL KIMBALL DO Apr 10, 2022 01:00
[2022-04-10] MEDS ORDERED: HURRICAINE EXT TUBE (BENZOCAINE) ONE (01:42)
[2022-04-10] MEDS ORDERED: ONDANSETRON 4 MG/2 ML (SDV) Z0FRAN IV PRN (03:30)
[2022-04-10] MEDS: D5 1/2 NS W/KCL 20 MEQ/L 1,000 ML IV SCH ×2 (03:40→13:30)
[2022-04-10 06:21] LABS: ALBUMIN 3.8 GM/DL (3.2-4.5); POTASSIUM 4.3 MMOL/L (3.6-5.0)
[2022-04-10 06:23] LABS: TOTAL PROTEIN 6.3 GM/DL (6.4-8.2)
[2022-04-10 06:25] LABS: BILIRUBIN,TOTAL 0.6 MG/DL (0.1-1.0)
[2022-04-10 06:27] LABS: CREATININE SERUM 1.56 MG/DL (0.60-1.30)
--- NOTE | 2022-04-10 07:04 | Diagnostic Imaging Report ---
Clinical indications: Post-NG tube placement. EXAM: Portable chest x-ray upright view. COMPARISON: Chest x-ray dated 04/10/2022 at 1207 hours. Findings and impression: 1: Nasogastric tube with distal aspect of the NG tube in the mid thoracic esophagus region. This to should be advanced at least another 20 to 25 cm to ensure good positioning. Referring clinicians are aware of the nasogastric tube position. 2: The remainder of this exam shows no significant interval change compared to the prior study of comparison. Dictated by: Dictated on workstation # [id number]
--- NOTE | 2022-04-10 07:27 | Consultation - Surgery ---
NANCI KWOK 04/10/22 0727: History of Present Illness History of Present Illness Patient Consulted On(antonio/time) 04/10/22 07:22 Date Seen by Provider: Apr 10, 2022 Time Seen by Provider: 07:01 Reason for Visit: Dysphagia History of Present Illness Mr. Yen is an 81 year old male with a past medical history of COPD, Afib, HTN, and gout who presented to the ED yesterday for dysphagia. He reports dysphagia for 1-2 months that has gotten progressively worse over the last 5 days. He reports feeling a "stuck" feeling in his lower esophagus. He vomits when he eats ice chips or tries to take medicine. He endorses associated chest pain and epigastric pain. He has a history of a gastric bypass about 25 years ago. He says nothing makes it worse and foods like spaghetti make it worse. He has slight generalized abdominal tenderness. CT showed mild dilation of distal esophagus. Allergies and Home Medications Allergies Coded Allergies: No Known Drug Allergies (Unverified , 04/30/18) Patient Home Medication List Albuterol Sulfate (Proair Hfa) 1 Puff Puff, 2 PUFF IH QID PRN for WHEEZING, (Reported) Entered as Reported by: ROBBIE GIRON on 11/10/19 1209 Apixaban (Eliquis) 5 Mg Tablet, 5 MG PO BID, (Reported) Entered as Reported by: MARIAM ZHANG on 04/30/18 1050 Cetirizine HCl (Cetirizine HCl) 10 Mg Tablet, 10 MG PO DAILY, (Reported) Entered as Reported by: MARIAM ZHANG on 04/30/18 1050 Flecainide Acetate (Flecainide Acetate) 50 Mg Tablet, 50 MG PO BID, (Reported) Entered as Reported by: ROBBIE GIRON on 11/10/19 1209 Fluoxetine HCl (Fluoxetine HCl) 20 Mg Capsule, 20 MG PO 1600, (Reported) Entered as Reported by: ROBBIE GIRON on 11/10/19 1209 Furosemide (Furosemide) 20 Mg Tablet, 20 MG PO 1000, (Reported) Entered as Reported by: ROBBIE GIRON on 11/10/19 1209 Losartan Potassium (Losartan Potassium) 100 Mg Tablet, 100 MG PO DAILY, (Reported) Entered as Reported by: MARIAM ZHANG on 04/30/18 1052 Potassium Chloride (Potassium Chloride) 10 Meq Tab.er.prt, 10 MEQ PO 1000, (Reported) Entered as Reported by: MARIAM ZHANG on 04/30/18 1050 Tamsulosin HCl (Flomax) 0.4 Mg Cap, 0.4 MG PO 1600, (Reported) Entered as Reported by: ROBBIE GIRON on 11/10/19 1209 Umeclidinium [place] (Incruse Ellipta) 62.5 Mcg Blst.w.dev, 1 PUFF IH DAILY@0800 Prescribed by: SHARIFA YANCEY on 11/11/19 1222 Past Qkbvwvm-Orovwe-Spgtbz Hx Patient Social History Smoking Status: Former Smoker Former Smoker, Quit: Apr 30, 1995 Type Used: Cigarettes 2nd Hand Smoke Exposure: No Recent Hopitalizations: No Alcohol Use?: Yes Have you traveled recently?: No Immunizations Up To Date Tetanus Booster (TDap): Unknown Date of Pneumonia Vaccine: Sep 15, 2019 Date of Influenza Vaccine: Sep 08, 2019 Surgeries History of Surgeries: Yes (loop recorder, cardioversion) Surgeries: Abdominal, Cardiac, Tonsillectomy Respiratory History of Respiratory Disorde: Yes Respiratory Disorders: Asthma, Sleep Apnea, COPD Cardiovascular History of Cardiac Disorders: Yes (CHF; PACER/DEFIB; CARDIOVERSIONS AND ABLATION FOR A FIB. ) Cardiac Disorders: Atrial Fibrillation, Hypertension, Irregular Heartbeat Neurological History of Neurological Disord: No Genitourinary History of Genitourinary Disor: Yes (CHRONIC RENAL ISUFFICIENCY. ) Genitourinary Disorders: Prostate Problems, Renal Failure Gastrointestinal History of Gastrointestinal Di: No (S/P GASTRIC BYPASS) Musculoskeletal History of Musculoskeletal Dis: No Endocrine History of Endocrine Disorders: Yes (OBESITY) HEENT History of HEENT Disorders: Yes (EDENTULOUS. VERY HARD OF HEARING) Hearing Impairment: Hard of Hearing, Bilateral Hearing Aide Cancer History of Cancer: No Psychosocial History of Psychiatric Problem: No Integumentary History of Skin or Integumenta: No Blood Transfusions History of Blood Disorders: No Family Medical History Significant Family History: Cancer (Lung cancer in father), CAD Over 55 Years Old (Mother) Review of Systems-General Constitutional: No chills, No fever EENTM: No blurred vision, No double vision Respiratory: No cough, No dyspnea on exertion, No short of breath Cardiovascular: No chest pain, No palpitations; other ("stuck" feeling in chest) Gastrointestinal: abdominal pain (Moderated generalized pain), dysphagia, nausea, vomiting Musculoskeletal: No joint pain, No muscle pain Physical Exam-General Problems Physical Exam Vital Signs Vital Signs - First Documented 04/09/22 23:38 Temp 36.9 Pulse 83 Resp 17 B/P (MAP) 134/87 (103) Pulse Ox 98 O2 Delivery Room Air Capillary Refill : Less Than 3 Seconds General Appearance: WD/WN, no apparent distress HEENT: PERRL/EOMI, other (NG tube in place) Neck: supple, normal inspection Respiratory: chest non-tender, lungs clear, normal breath sounds, no respiratory distress, no accessory muscle use Cardiovascular: normal peripheral pulses, irregularly irregular Peripheral Pulses: 2+ Radial Pulses (R), 2+ Radial Pulses (L) Gastrointestinal: soft; No distended, No guarding, No rebound; tenderness (Mild generalized, more tender in epigastric) Extremities: normal inspection, pedal edema (1+) Neurologic/Psychiatric: no motor/sensory deficits, alert, normal mood/affect, oriented x 3 Skin: normal color, warm/dry Data Review Labs Laboratory Tests 04/10/22 00:00: White Blood Count 10.1, Red Blood Count 4.00L, Hemoglobin 11.0L, Hematocrit 35L, Mean Corpuscular Volume 88, Mean Corpuscular Hemoglobin 28, Mean Corpuscular Hemoglobin Concent 31L, Red Cell Distribution Width 15.8H, Platelet Count 213, Mean Platelet Volume 10.2, Immature Granulocyte % (Auto) 0, Neutrophils (%) (Auto) 70, Lymphocytes (%) (Auto) 21, Monocytes (%) (Auto) 8, Eosinophils (%) (Auto) 1, Basophils (%) (Auto) 0, Neutrophils # (Auto) 7.0, Lymphocytes # (Auto) 2.1, Monocytes # (Auto) 0.8, Eosinophils # (Auto) 0.1, Basophils # (Auto) 0.0, Immature Granulocyte # (Auto) 0.0, Prothrombin Time 16.5H, INR Comment 1.3, Activated Partial Thromboplast Time 37H, D-Dimer 0.20, Sodium Level 140, Potassium Level 4.3, Chloride Level 110H, Carbon Dioxide Level 16L, Anion Gap 14, Blood Urea Nitrogen 39H, Creatinine 1.72H, Estimat Glomerular Filtration Rate 40, BUN/Creatinine Ratio 23, Glucose Level 92, Calcium Level 9.1, Corrected Calcium 9.1, Magnesium Level 2.3, Total Bilirubin 0.7, Aspartate Amino Transf (AST/SGOT) 18, Alanine Aminotransferase (ALT/SGPT) 15, Alkaline Phosphatase 139H , Total Creatine Kinase 181, Creatine Kinase MB 3.8, Myoglobin 262.7H, Troponin I < 0.028, B-Type Natriuretic Peptide 56.0, Total Protein 6.5, Albumin 4.0, Amylase Level 66, Lipase 13 04/10/22 05:32: Sodium Level 139, Potassium Level 4.3, Chloride Level 111H, Carbon Dioxide Level 18L, Anion Gap 10, Blood Urea Nitrogen 36H, Creatinine 1.56H, Estimat Glomerular Filtration Rate 45, BUN/Creatinine Ratio 23, Glucose Level 114H, Calcium Level 9.0, Corrected Calcium 9.2, Total Bilirubin 0.6, Aspartate Amino Transf (AST/SGOT) 16, Alanine Aminotransferase (ALT/SGPT) 13, Alkaline Phosphatase 129, Total Protein 6.3L, Albumin 3.8 Assessment/Plan Assessment/Plan Assessment/Plan Assessment: Dysphagia - h/o gastric bypass 25 years ago - CT shows distal esophagus dilation Elevated BUN/Cr - 39 and 1.72 Anemia - 11.0 Hgb COPD AFIB HTN Plan: Continue ondansetron and pantoprazole PRN Plan for EGD today to assess for dysphagia NG tube in place IVF for CHEMA Restart home medications for blood pressure control RAFI DIA DO 04/10/22 0829: History of Present Illness History of Present Illness History of Present Illness Surgery asked to consult regarding dysphagia and possible stricture. HPI per ED: PT ARRIVES VIA POV FROM HOME WITH , STATES HE HAS BEEN HAVING NAUSEA AND "DRY HEAVES" FOR THE LAST 5 WEEKS, STATES IT HAS BEEN MUCH WORSE FOR THE LAST SEVERAL DAYS AND IS MUCH WORSE TODAY STATES HE CAN'T KEEP ANYTHING DOWN, STATES EVEN ICE CHIPS IMMEDIATELY COME RIGHT BACK UP. ONLY FOOD INTAKE TODAY, WAS THIS MORNING WHEN HE TOOK A FEW BITES OF TOAST AND IT ALL CAME BACK UP STATES HE CAN'T KEEP DOWN HIS REGULAR MEDICATIONS, STATES IT FEELS LIKE THINGS ARE STUCK IN HIS "FOOD TUBE", C/O EPIGASTRIC AND UPPER CHEST DISCOMFORT, HAD NORMAL BM TODAY, NO URINARY SYMPTOMS NO SHORTNESS OF BREATH, NO COUGHING, NO FEVER/SWEATS/CHILLS, PT HAD GASTRIC BYPASS SURGERY MANY YEARS AGO IN [place]. DOES NOT RECALL EVER HAVING ANY TYPE OF EGD When I spoke to pt this am he complained of heartburn. States he let an ice cu be melt, swallowed it and it still "came up". Mild chest pain, but describes it as heartburn. He states he had something "down my throat, to look at heart"; he is describing YUMIKO not an EGD. Pain last night was rated 3-4 out of 10. Allergies and Home Medications Allergies Coded Allergies: No Known Drug Allergies (Unverified , 04/30/18) Patient Home Medication List Home Medication List Reviewed: Yes Albuterol Sulfate (Proair Hfa) 1 Puff Puff, 2 PUFF IH QID PRN for WHEEZING, (Reported) Entered as Reported by: ROBBIE GIRON on 11/10/19 1209 Apixaban (Eliquis) 5 Mg Tablet, 5 MG PO BID, (Reported) Entered as Reported by: MARIAM ZHANG on 04/30/18 1050 Cetirizine HCl (Cetirizine HCl) 10 Mg Tablet, 10 MG PO DAILY, (Reported) Entered as Reported by: MARIAM ZHANG on 04/30/18 1050 Flecainide Acetate (Flecainide Acetate) 50 Mg Tablet, 50 MG PO BID, (Reported) Entered as Reported by: ROBBIE GIRON on 11/10/19 1209 Fluoxetine HCl (Fluoxetine HCl) 20 Mg Capsule, 20 MG PO 1600, (Reported) Entered as Reported by: ROBBIE GIRON on 11/10/19 1209 Furosemide (Furosemide) 20 Mg Tablet, 20 MG PO 1000, (Reported) Entered as Reported by: ROBBIE GIRON on 11/10/19 1209 Losartan Potassium (Losartan Potassium) 100 Mg Tablet, 100 MG PO DAILY, (Reported) Entered as Reported by: MARIAM ZHANG on 04/30/18 1052 Potassium Chloride (Potassium Chloride) 10 Meq Tab.er.prt, 10 MEQ PO 1000, (Reported) Entered as Reported by: MARIAM ZHANG on 04/30/18 1050 Tamsulosin HCl (Flomax) 0.4 Mg Cap, 0.4 MG PO 1600, (Reported) Entered as Reported by: ROBBIE GIRON on 11/10/19 1209 Umeclidinium [place] (Incruse Ellipta) 62.5 Mcg Blst.w.dev, 1 PUFF IH DAILY@0800 Prescribed by: SHARIFA YANCEY on 11/11/19 1222 Past Diwqjbq-Miwews-Mfgsra Hx Patient Social History Smoking Status: Former Smoker Alcohol Use?: Yes Surgeries History of Surgeries: Yes (loop recorder, cardioversion) Surgeries: Abdominal (Gastric bypass), Tonsillectomy Respiratory History of Respiratory Disorde: Yes Respiratory Disorders: COPD Cardiovascular History of Cardiac Disorders: Yes Cardiac Disorders: Atrial Fibrillation, Hypertension Neurological History of Neurological Disord: No Gastrointestinal History of Gastrointestinal Di: Yes Gastrointestinal Disorders: Gastroesophageal Reflux Musculoskeletal History of Musculoskeletal Dis: Yes Musculoskeletal Disorders: Gout Endocrine History of Endocrine Disorders: No HEENT History of HEENT Disorders: No Hearing Impairment: Hard of Hearing, Hearing Aide Right Cancer History of Cancer: No Psychosocial History of Psychiatric Problem: No Family Medical History Significant Family History: Cancer (Lung cancer in father), CAD Over 55 Years Old (Mother) Review of Systems-General Constitutional: No chills, No fever EENTM: hearing loss; No blurred vision, No double vision Respiratory: No cough, No dyspnea on exertion, No short of breath Cardiovascular: No chest pain, No palpitations; other ("stuck" feeling in chest) Gastrointestinal: abdominal pain (Moderated generalized pain), dysphagia, nausea, vomiting Genitourinary: No dysuria, No frequency, No hematuria Musculoskeletal: No joint pain, No muscle pain Skin: No change in color, No change in hair/nails Psychiatric/Neurological: Denies Anxiety, Denies Depressed, Denies Seizure, Denies Tremors Physical Exam-General Problems Physical Exam General Appearance: WD/WN, no apparent distress Eyes: Bilateral Eye PERRL, Bilateral Eye EOMI HEENT: pharynx normal; No scleral icterus (R), No scleral icterus (L); other (NG tube in place) Neck: non-tender, supple Respiratory: chest non-tender, lungs clear, normal breath sounds, no respiratory distress, no accessory muscle use Cardiovascular: normal peripheral pulses, no murmur, irregularly irregular Gastrointestinal: No distended, No guarding, No rebound; tenderness (Mild generalized, more tender in epigastric), hernia (umbilical) Rectal: deferred Extremities: normal inspection, no calf tenderness, pedal edema (1+) Neurologic/Psychiatric: no motor/sensory deficits, alert, normal mood/affect, oriented x 3 Skin: normal color, warm/dry Lymphatic: no adenopathy (neck, axilla or groin) Assessment/Plan Assessment/Plan Assessment/Plan Dysphagia - rule out stricture vs food bolus vs mass - h/o gastric bypass 25 years ago - CT shows distal esophagus dilation Elevated BUN/Cr - 39 and 1.72 Anemia - 11.0 Hgb COPD AFIB HTN Plan: Continue ondansetron and pantoprazole PRN, Plan for EGD today to assess for dysphagia, NG tube in place, IVF for CHEMA, Restart home medications for blood pressure control When I talked to pt we went over risks and complications; the worst being aspiration and possible esophageal perforation. All questions answered to his satisfaction. Will get consent and take him down now to see if he has a stricture vs food bolus vs. possible mass. Planned biopsy if we find something. Supervisory-Addendum Brief Verification & Attestation Participated in pt care: history, MDM, physical Personally performed: exam, history, MDM, supervision of care Care discussed with: Medical Student Procedures: n/a Verification and Attestation of Medical Student E/M Service A medical student performed and documented this service. I then reviewed and verified all information documented by the medical student and made modifications to such information, when appropriate. I personally performed a physical exam, medical decision making and then discussed any differences between the notes and made revisions as necessary to create one note. Rafi Dia , 04/10/22 , 08:35 NANCI KWOK Apr 10, 2022 07:27 RAFI DIA DO Apr 10, 2022 08:29
--- NOTE | 2022-04-10 08:09 | Diagnostic Imaging Report ---
INDICATION: Chest pain. TECHNIQUE: Single view chest 12:07 AM. CORRELATION STUDY: 11/09/2019 FINDINGS: Heart size enlarged. Loop recorder device projects over the left heart. Mediastinum and vasculature overall unchanged. The lungs are clear with no consolidating infiltrate. There is no significant effusion or pneumothorax. IMPRESSION: 1. Cardiac enlargement without overt failure. Dictated by: Dictated on workstation # [id number]
[2022-04-10] MEDS ORDERED: LACTATED RINGERS 1,000 ML IV STA (08:27)
[2022-04-10 08:28] LABS: BASOPHILS # (AUTO) 0.1 10^3/uL (0.0-0.1); BASOPHILS % (AUTO) 1 % (0-10); EOSINOPHILS # (AUTO) 0.1 10^3/uL (0.0-0.3); EOSINOPHILS % (AUTO) 1 % (0-10); HEMATOCRIT 37 % (40-54); HEMOGLOBIN 11.2 g/dL (13.3-17.7); LYMPHOCYTES % (AUTO) 20 % (12-44); MEAN CORPUSCULAR HEMOGLOBIN 27 pg (25-34); MEAN CORPUSCULAR HGB CONC 31 g/dL (32-36); MEAN CORPUSCULAR VOLUME 90 fL (80-99); MEAN PLATELET VOLUME 10.6 fL (9.0-12.2); MONOCYTES # (AUTO) 0.7 10^3/uL (0.0-1.0); MONOCYTES % (AUTO) 7 % (0-12); NEUTROPHILS # (AUTO) 6.9 10^3/uL (1.8-7.8); NEUTROPHILS % (AUTO) 71 % (42-75); PLATELET COUNT 204 10^3/uL (130-400); WHITE BLOOD COUNT 9.7 10^3/uL (4.3-11.0)
[2022-04-10] MEDS ORDERED: HURRICAINE EXT TUBE (BENZOCAINE) XX PRN (08:30)
[2022-04-10] MEDS ORDERED: NS IV 1000 ML 1,000 ML IV ONE (08:30)
--- NOTE | 2022-04-10 08:33 | Diagnostic Imaging Report ---
PROCEDURE: CT chest, abdomen, and pelvis without contrast. TECHNIQUE: Multiple contiguous axial images were obtained through the chest, abdomen, and pelvis without the use of intravenous contrast. Auto Exposure Controls were utilized during the CT exam to meet ALARA standards for radiation dose reduction. INDICATION: Epigastric pain with nausea and vomiting. No prior studies are available for comparison. CT CHEST: There is some fluid-filled distention of the esophagus to the level of the thoracic inlet. No axillary lymphadenopathy is detected. No definite mediastinal or hilar lymphadenopathy is seen. There is no pericardial or pleural fluid detected. No pulmonary infiltrates, nodules or masses are seen. IMPRESSION: Fluid-filled esophagus. The study is otherwise unremarkable. CT abdomen and pelvis: There are postoperative changes of gastric bypass surgery. The small and large bowel loops are normal in caliber. No obstruction is seen. There is diverticulosis of the descending and sigmoid colon. There is some minimal inflammation adjacent to sigmoid loop and very minimal diverticulitis cannot be entirely excluded. No free fluid or fluid collection is identified. There is no free air. The liver and gallbladder are unremarkable. The pancreas and spleen are unremarkable. No adrenal mass is detected. Kidneys are without calculi or hydronephrosis. Aorta is heavily calcified but nonaneurysmal. The bladder and prostate are unremarkable. There is some sclerosis of the sacrum and the right iliac bone perhaps on the basis of Paget's disease. However, osteoblastic metastatic disease cannot be entirely excluded. IMPRESSION: 1. Postoperative changes of gastric bypass surgery. 2. Diverticulosis with perhaps very mild diverticulitis of the sigmoid colon. 3. Sclerotic changes of the bony pelvis, perhaps on the basis of Paget's disease although osteoblastic metastatic disease cannot be entirely excluded. Dictated by: Dictated on workstation # [id number]
[2022-04-10] MEDS ORDERED: PANTOPRAZOLE 40 MG (PROTONIX) VIAL IV SCH (09:00)
[2022-04-10] MEDS ORDERED: MIDAZOLAM 2 MG/2 ML (VERSED) VIAL ONE (09:11)
[2022-04-10] MEDS ORDERED: proPOfol 200 MG/20 ML (DIPRIVAN) VIAL IV ONE (09:11)
[2022-04-10] MEDS ORDERED: SUCCINYLCHOLINE INJ 100 MG/5 ML SYR/VIAL ONE (09:11)
[2022-04-10] MEDS ORDERED: LIDOCAINE PF 2% 5 ML (XYLOCAINE) VIAL ONE (09:14)
--- NOTE | 2022-04-10 09:43 | Anesthesia-General Post-Op ---
General Patient Condition Mental Status/LOC: Same as Preop Cardiovascular: Satisfactory Nausea/Vomiting: Absent Respiratory: Satisfactory Pain: Controlled Complications: Absent Post Op Complications Complications None Follow Up Care/Instructions Patient Instructions None needed. Anesthesia/Patient Condition Patient Condition Patient is doing well, no complaints, stable vital signs, no apparent adverse anesthesia problems. No complications reported per nursing. ROBERT MARSH CRNA Apr 10, 2022 09:43
--- NOTE | 2022-04-10 09:50 | Progress Note-Post Operative ---
Post-Operative Progess Note Surgeon (s)/Court Crier (s) Surgeon RAFI DIA DO Court Crier: none Pre-Operative Diagnosis Dysphagia, GERD Post-Operative Diagnosis Esophageal ulcer/inflammation Hiatal hernia Procedure & Operative Findings Date of Procedure 04/10/22 Procedure Performed/Findings EGD with bx PROCEDURE NOTE: After informed consent was obtained, the patient was brought to the endoscopy suite, placed in bed in left lateral decubitus position. We elected to intubate pt because of concern for aspiration; done by the SOCIETY REPORTER who then monitored vitals the entire time, heart rate, blood pressure and pulse ox and the scope was inserted down the mouth and down the esophagus. On the way down noted some inflammation but able to push past this and into the stomach pouch. Took a picture and pushed down the alimentary limb approximately 30cm and it looked good. Pulled back into the gastric pouch and then retroflexed the scope. I saw a hiatal hernia, took a picture of this and then pulled the scope into the GE junction, took another picture of the hiatal hernia and then did a biopsy of the inflammation which was just above the GE junction. Pushed the scope back into the stomach, suctioned all the air out of the stomach. At this point pulled the scope up the esophagus and out the mouth. The patient tolerated the procedure, and he recovered in endoscopy suite. Anesthesia Type GET Estimated Blood Loss Estimated blood loss (mL): scant Specimens/Packing Specimens Removed esophageal bx RAFI DIA DO Apr 10, 2022 09:50
[2022-04-10] MEDS ORDERED: ACETAMINOPHEN 325 MG TABLET PO PRN (12:15)
[2022-04-10] MEDS ORDERED: PANT40TA52 PO (13:30)
--- NOTE | 2022-04-10 18:11 | Short Stay Summary ---
LILIAN BARRIOS 04/10/22 1811: HPI History of Present Illness: Mr. Yen is an 81 year old male with a past medical history of COPD, Afib, HTN, and gout who presented to the ED yesterday for dysphagia. He reports dysphagia for 1-2 months that has gotten progressively worse over the last 5 days. He reports feeling a "stuck" feeling in his lower esophagus. He vomits when he eats ice chips or tries to take medicine. He endorses associated chest pain, epigastric pain nausea, and vomiting. He has a history of a gastric bypass about 25 years ago. He says nothing makes it better and eating food and water make it worse. He has slight generalized abdominal tenderness. CT showed mild dilation of distal esophagus. Patient under EGD that showed esophageal ulcer/inflammation + hiatal hernia Source: patient Date seen by provider: Apr 10, 2022 Time Seen by Provider: 10:00 Attending Physician Elke Plata MD PCP Admitting Physician: Sharifa Yancey MD Attending Physician: Sharifa Yancey MD Consult Date of Admission Apr 10, 2022 at 01:20 Home Medications Home Medications Reviewed patient Home Medication Reconciliation performed by pharmacy medication reconciliations multimedia technician and/or nursing. Patients Allergies have been reviewed. Allergies Coded Allergies: No Known Drug Allergies (Unverified , 04/30/18) SGX-Mkcych-Cxhjrj Hx Patient Social History Marrital Status: Employed/Student: retired Smoking Status: Former Smoker 2nd Hand Smoke Exposure: No Recent Hopitalizations: No Alcohol Use?: Yes Tobacco type used: Cigarettes Have you traveled recently?: No Immunizations Up To Date Tetanus Booster (TDap): Unknown Influenza Vaccine Up-to-Date: Yes; Up-to-Date First/Initial COVID19 Vaccinat: 2020 Second COVID19 Vaccination Ashish: 2020 Third COVID19 Vaccination Date: 2020 Past Medical History PMHx: HTN HLD COPD A fib CKD CHF Gout GERD SurgHx: Gastric bypass Tonsillectomy Family Medical History Significant Family History: Cancer (Lung cancer in father), CAD Over 55 Years Old (Mother) Other Significan Family Hx: SOCIAL HISTORY: -SMOKED 2 PPD, QUIT 25 YEARS AGO -ETOH--HISTORY OF VERY HEAVY USE, STATES NOW HE ONLY DRINKS "OCCASIONALLY" -DENIES DRUG USE PAST SURGICAL HISTORY: -GASTRIC BYPASS -CARDIOVERSIONS FOR ATRIAL FIBRILLATION -CARDIAC ABLATION 03/[address] HERNANDEZ -LOOP RECORDER. -PACEMAKER/DEFIBRILLATOR -TONSILLECTOMY Review of Systems ([facility]) Constitutional: No chills, No fever Respiratory: No cough, No short of breath Cardiovascular: No chest pain, No palpitations Gastrointestinal: abdominal pain (Epigastric), dysphagia, heartburn, nausea Genitourinary: No dysuria, No frequency Physical Exam-([facility]) Physical Exam Vital Signs VS - Last 72 Hours, by Label 04/09/22 04/10/22 04/10/22 04/10/22 23:38 02:29 02:50 03:00 Temp 36.9 36.6 Pulse 83 64 69 Resp 17 18 20 B/P (MAP) 134/87 (103) 155/85 180/77 (111) Pulse Ox 98 97 94 O2 Delivery Room Air Room Air Room Air Room Air 04/10/22 04/10/22 04/10/22 04/10/22 03:50 06:37 07:45 07:48 Temp 36.5 Pulse 79 76 74 Resp 18 B/P (MAP) 183/80 (114) Pulse Ox 97 O2 Delivery Room Air Room Air 04/10/22 04/10/22 04/10/22 04/10/22 09:39 09:39 09:45 09:50 Temp 36.2 Resp 20 20 B/P (MAP) 140/66 (90) 149/65 (93) Pulse Ox 99 99 O2 Delivery OxyMask OxyMask OxyMask OxyMask O2 Flow Rate 6.00 6.00 6.00 6.00 04/10/22 04/10/22 04/10/22 04/10/22 10:00 10:00 10:10 10:15 Resp 20 20 B/P (MAP) 139/62 (87) 149/66 (93) Pulse Ox 100 98 O2 Delivery OxyMask OxyMask Room Air Room Air O2 Flow Rate 4.00 4.00 04/10/22 04/10/22 04/10/22 04/10/22 10:20 10:25 10:25 11:27 Temp 36.2 36.5 Pulse 54 Resp 20 20 16 B/P (MAP) 136/60 (85) 148/61 (90) 173/76 (108) Pulse Ox 98 98 96 O2 Delivery Room Air Room Air Room Air Room Air 04/10/22 04/10/22 04/10/22 12:34 12:34 14:48 Pulse 67 76 B/P (MAP) Capillary Refill : Less Than 3 SecondsLess Than 3 Seconds General Appearance: WD/WN, no apparent distress HEENT: PERRL/EOMI Neck: supple, normal inspection Respiratory: no respiratory distress, no accessory muscle use Cardiovascular: regular rate, rhythm, no murmur Gastrointestinal: normal bowel sounds, soft, other (Epigastric tenderness) Rectal: deferred Extremities: non-tender, no calf tenderness, other (Varicose veins) Neurologic/Psychiatric: alert, normal mood/affect, oriented x 3 Skin: normal color, warm/dry Short Stay Diagnosis Discharge Diagnosis-Short Stay Admission Diagnosis Epigastric obstruction Final Discharge Diagnosis Esophageal ulcer/inflammation Conclusion Plan Patient is to take a proton pump inhibitor as prescribed on discharge papers, stick to a clear liquid diet, and follow up with Dr. Gregorio in one week. SHARIFA YANCEY MD 04/10/222127: Home Medications Allergies Coded Allergies: No Known Drug Allergies (Unverified , 04/30/18) Physical Exam-([facility]) Physical Exam General Appearance: WD/WN, no apparent distress Respiratory: lungs clear, normal breath sounds Cardiovascular: regular rate, rhythm, no murmur Gastrointestinal: normal bowel sounds, soft Neurologic/Psychiatric: alert, normal mood/affect Skin: warm/dry Supervisory-Addendum Brief Verification & Attestation Participated in pt care: history, MDM, physical Personally performed: exam, history, MDM, supervision of care Care discussed with: Medical Student Procedures: n/a I personally saw and examined patient, I did my own physical exam, refer to my findings documented, I did not repeat the same exam as the student. I directed the plan of care as documented by the medical student. LILIAN BARRIOS Apr 10, 2022 18:11 SHARIFA YANCEY MD Apr 10, 2022 21:28
== END 2022-04-10 14:48 | disposition home or self-care (01) | DRG 381 ==
LOC: EDUNIT# 23:29 → ER 23:34 → 4TH 04-10 01:20
PROVIDERS: ADMIT Family Medicine; ATTEND Family Medicine
PROC: 0DB58ZX Excision of Esophagus, Via Natural or Artificial Opening Endoscopic, Diagnostic (ICD-10-PCS; principal; 2022-04-10 09:24)
DX: K22.10 Ulcer of esophagus without bleeding (principal); I13.0 Hypertensive heart and chronic kidney disease with heart failure and stage 1 through stage 4 chronic kidney disease, or unspecified chronic kidney disease; K22.2 Esophageal obstruction; K44.9 Diaphragmatic hernia without obstruction or gangrene; Z87.891 Personal history of nicotine dependence; Z98.84 Bariatric surgery status; Z95.810 Presence of automatic (implantable) cardiac defibrillator; E78.5 Hyperlipidemia, unspecified; J44.9 Chronic obstructive pulmonary disease, unspecified; I48.91 Unspecified atrial fibrillation; N18.9 Chronic kidney disease, unspecified; I50.9 Heart failure, unspecified; K21.9 Gastro-esophageal reflux disease without esophagitis; M10.9 Gout, unspecified; G47.30 Sleep apnea, unspecified; E66.9 Obesity, unspecified
CPT/HCPCS: 36415; 71045; 71250; 74176; 80053; 82150; 82550; 82553; 83690; 83735; 83874; 83880; 84484; 85025; 85379; 85610; 85730; 93005; 93041

== ENCOUNTER 2022-06-16 14:06 | Observation (INO) | payer MEDICARE ==
[~2022-06-16] VITALS: Ht 170.2 cm; Wt 108.2 kg
[~2022-06-16 14:06] MED LIST changes: +PANT40TA52 PO; +POTA-177 PO; -POTA10TA37 PO
[2022-06-16 15:02] LABS: BASOPHILS % (AUTO) 1 % (0-10); EOSINOPHILS # (AUTO) 0.1 10^3/uL (0.0-0.3); EOSINOPHILS % (AUTO) 1 % (0-10); HEMATOCRIT 35 % (40-54); HEMOGLOBIN 11.3 g/dL (13.3-17.7); LYMPHOCYTES % (AUTO) 25 % (12-44); MEAN CORPUSCULAR HEMOGLOBIN 28 pg (25-34); MEAN CORPUSCULAR HGB CONC 33 g/dL (32-36); MEAN CORPUSCULAR VOLUME 87 fL (80-99); MEAN PLATELET VOLUME 10.3 fL (9.0-12.2); MONOCYTES # (AUTO) 0.5 X 10^3 (0.0-1.0); MONOCYTES % (AUTO) 6 % (0-12); NEUTROPHILS # (AUTO) 5.6 X 10^3 (1.8-7.8); NEUTROPHILS % (AUTO) 68 % (42-75); PLATELET COUNT 224 10^3/uL (130-400); WHITE BLOOD COUNT 8.1 10^3/uL (4.3-11.0)
[2022-06-16 15:09] LABS: ALBUMIN 4.1 GM/DL (3.2-4.5); POTASSIUM 4.3 MMOL/L (3.6-5.0)
[2022-06-16 15:10] LABS: CALCIUM 9.7 MG/DL (8.5-10.1)
[2022-06-16 15:12] LABS: TOTAL PROTEIN 6.8 GM/DL (6.4-8.2)
[2022-06-16 15:14] LABS: BILIRUBIN,TOTAL 0.8 MG/DL (0.1-1.0)
[2022-06-16 15:16] LABS: CREATININE SERUM 1.36 MG/DL (0.60-1.30)
[2022-06-16] MEDS ORDERED: ONDANSETRON 4 MG/2 ML (SDV) Z0FRAN IVP ONE (15:45)
[2022-06-16 16:00] LABS: BILIRUBIN,URINE NEGATIVE (NEGATIVE); CLARITY,URINE CLEAR; COLOR,URINE YELLOW; GLUCOSE, URINE (UA) NEGATIVE (NEGATIVE); KETONES,URINE NEGATIVE (NEGATIVE); LEUKOCYTE ESTERASE ,URINE NEGATIVE (NEGATIVE); NITRITE,URINE NEGATIVE (NEGATIVE); PROTEIN,URINE NEGATIVE (NEGATIVE)
[2022-06-16 16:16] LABS: BACTERIA,URINE NEGATIVE /HPF
[2022-06-16] MEDS ORDERED: PANTOPRAZOLE 40 MG (PROTONIX) VIAL IV ONE (16:45)
--- NOTE | 2022-06-16 17:06 | ED GI ---
General Chief Complaint: Abdominal/GI Problems Stated Complaint: VOMITING Nursing Triage Note: PT AMBULATE TO ROOM 10 WITH C/O N/V X2-3 WEEKS THAT HAS WORSENED IN THE LAST 2-3 DAYS. PT REPORTS THIS HAS HAPPENED BEFORE. Source of Information: Patient, Family, Old Records Exam Limitations: No Limitations History of Present Illness Date Seen by Provider: Jun 16, 2022 Allergies and Home Medications Allergies Coded Allergies: No Known Drug Allergies (Unverified , 04/30/18) Patient Home Medication List Albuterol Sulfate (Proair Hfa) 1 Puff Puff, 2 PUFF IH QID PRN for WHEEZING, (Reported) Entered as Reported by: ROBBIE GIRON on 11/10/19 1209 Apixaban (Eliquis) 5 Mg Tablet, 5 MG PO BID, (Reported) Entered as Reported by: MARIAM ZHANG on 04/30/18 1050 Cetirizine HCl (Cetirizine HCl) 10 Mg Tablet, 10 MG PO DAILY, (Reported) Entered as Reported by: MARIAM ZHANG on 04/30/18 1050 Flecainide Acetate (Flecainide Acetate) 50 Mg Tablet, 50 MG PO BID, (Reported) Entered as Reported by: ROBBIE GIRON on 11/10/19 1209 Fluoxetine HCl (Fluoxetine HCl) 20 Mg Capsule, 20 MG PO 1600, (Reported) Entered as Reported by: ROBBIE GIRON on 11/10/19 1209 Furosemide (Furosemide) 20 Mg Tablet, 20 MG PO 1000, (Reported) Entered as Reported by: ROBBIE GIRON on 11/10/19 1209 Losartan Potassium (Losartan Potassium) 100 Mg Tablet, 100 MG PO DAILY, (Reported) Entered as Reported by: MARIAM ZHANG on 04/30/18 1052 Pantoprazole Sodium (Pantoprazole Sodium) 40 Mg Tablet.dr, 40 MG PO BID Prescribed by: SHARIFA YANCEY on 04/10/22 1330 Potassium Chloride (Potassium Chloride) 10 Meq Tab.er.prt, 10 MEQ PO 1000, (Reported) Entered as Reported by: MARIAM ZHANG on 04/30/18 1050 Tamsulosin HCl (Flomax) 0.4 Mg Cap, 0.4 MG PO 1600, (Reported) Entered as Reported by: ROBBIE GIRON on 11/10/19 1209 Umeclidinium [place] (Incruse Ellipta) 62.5 Mcg Blst.w.dev, 1 PUFF IH DAILY@0800 Prescribed by: SHARIFA YANCEY on 11/11/19 1222 Past Cphbchr-Eicpyi-Beavlj Hx Patient Social History Tobacco Use?: No Smoking Status: Former Smoker Smokeless Tobacco Frequency: Never a User Use of E-Cig and/or Vaping dev: No Use of E-Cig and/or Vaping Victor M: Never a User Substance use?: No Alcohol Use?: Yes Alcohol Frequency: Once in a while Pt feels they are or have been: No Immunizations Up To Date Tetanus Booster (TDap): Unknown First/Initial COVID19 Vaccinat: 2020 Second COVID19 Vaccination Ashish: 2020 Third COVID19 Vaccination Date: 2020 Past Medical History Surgery/Hospitalization HX: A-FIB, HTN, CHF, COPD, SLEEP APNEA Surgeries: Yes (loop recorder, cardioversion) Abdominal, Tonsillectomy Respiratory: Yes COPD Currently Using CPAP: No Currently Using BIPAP: No Cardiac: Yes Atrial Fibrillation, Hypertension Neurological: No Genitourinary: Yes (CHRONIC RENAL ISUFFICIENCY. ) Prostate Problems, Renal Failure Gastrointestinal: Yes Gastroesophageal Reflux Musculoskeletal: Yes Gout Endocrine: No HEENT: No Hearing Impairment: Hard of Hearing, Hearing Aide Right Cancer: No Psychosocial: No Integumentary: No Blood Disorders: No Family Medical History Cancer, CAD Over 55 Years Old SOCIAL HISTORY: -SMOKED 2 PPD, QUIT 25 YEARS AGO -ETOH--HISTORY OF VERY HEAVY USE, STATES NOW HE ONLY DRINKS "OCCASIONALLY" -DENIES DRUG USE PAST SURGICAL HISTORY: -GASTRIC BYPASS -CARDIOVERSIONS FOR ATRIAL FIBRILLATION -CARDIAC ABLATION 03/2020 FOR [address] FIBRI[address] DR[address] HERNANDEZ -LOOP RECORDER. -PACEMAKER/DEFIBRILLATOR -TONSILLECTOMY Physical Exam Vital Signs Vital Signs - First Documented 06/16/22 14:32 Temp 36.2 Pulse 66 Resp 19 B/P (MAP) 176/63 (100) O2 Delivery Room Air Capillary Refill : Less Than 3 Seconds Height/Weight/BMI Height: 5'7.00" Weight: 279lbs. 0.0oz. 126.650249xm; 36.00 BMI Method: Progress/Results/Core Measures Results/Orders Lab Results Laboratory Tests Test 06/16/22 14:02 9/11/22 15:50 Range/Units White Blood Count 8.1 4.3-11.0 10^3/uL Red Blood Count 3.99 L 4.30-5.52 10^6/uL Hemoglobin 11.3 L 13.3-17.7 g/dL Hematocrit 35 L 40-54 % Mean Corpuscular Volume 87 80-99 fL Mean Corpuscular Hemoglobin 28 25-34 pg Mean Corpuscular Hemoglobin Concent 33 32-36 g/dL Red Cell Distribution Width 15.8 H 10.0-14.5 % Platelet Count 224 130-400 10^3/uL Mean Platelet Volume 10.3 9.0-12.2 fL Immature Granulocyte % (Auto) 0 % Neutrophils (%) (Auto) 68 42-75 % Lymphocytes (%) (Auto) 25 12-44 % Monocytes (%) (Auto) 6 0-12 % Eosinophils (%) (Auto) 1 0-10 % Basophils (%) (Auto) 1 0-10 % Neutrophils # (Auto) 5.6 1.8-7.8 X 10^3 Lymphocytes # (Auto) 2.0 1.0-4.0 X 10^3 Monocytes # (Auto) 0.5 0.0-1.0 X 10^3 Eosinophils # (Auto) 0.1 0.0-0.3 10^3/uL Basophils # (Auto) 0.0 0.0-0.1 10^3/uL Immature Granulocyte # (Auto) 0.0 0.0-0.1 10^3/uL Sodium Level 139 135-145 MMOL/L Potassium Level 4.3 3.6-5.0 MMOL/L Chloride Level 108 H 98-107 MMOL/L Carbon Dioxide Level 19 L 21-32 MMOL/L Anion Gap 12 5-14 MMOL/L Blood Urea Nitrogen 27 H 7-18 MG/DL Creatinine 1.36 H 0.60-1.30 MG/DL Estimat Glomerular Filtration Rate 53 BUN/Creatinine Ratio 20 Glucose Level 87 70-105 MG/DL Calcium Level 9.7 8.5-10.1 MG/DL Corrected Calcium 9.6 8.5-10.1 MG/DL Total Bilirubin 0.8 0.1-1.0 MG/DL Aspartate Amino Transf (AST/SGOT) 15 5-34 U/L Alanine Aminotransferase (ALT/SGPT) 14 0-55 U/L Alkaline Phosphatase 146 H 40-136 U/L Total Protein 6.8 6.4-8.2 GM/DL Albumin 4.1 3.2-4.5 GM/DL Urine Color YELLOW Urine Clarity CLEAR Urine pH 8.0 5-9 Urine Specific [place] 1.010 L 1.016-1.022 Urine Protein NEGATIVE NEGATIVE Urine Glucose (UA) NEGATIVE NEGATIVE Urine Ketones NEGATIVE NEGATIVE Urine Nitrite NEGATIVE NEGATIVE Urine Bilirubin NEGATIVE NEGATIVE Urine Urobilinogen 1.0 < = 1.0 MG/DL Urine Leukocyte Esterase NEGATIVE NEGATIVE Urine RBC (Auto) NEGATIVE NEGATIVE Urine RBC NONE /HPF Urine WBC NONE /HPF Urine Crystals NONE /LPF Urine Bacteria NEGATIVE /HPF Urine Casts NONE /LPF Urine Mucus NEGATIVE /LPF Urine Culture Indicated NO My Orders Orders - ALEJANDRO MCKAY MD Cbc With Automated Diff (06/16/22 14:17) Comprehensive Metabolic Panel (06/16/22 14:17) Ed Iv/Invasive Line Start (06/16/22 14:17) Ondansetron Injection (Zofran Injectio (06/16/22 15:45) Pantoprazole Injection (Protonix Injecti (06/16/22 16:45) Ct Chest/Abdomen/Pelvis Wo (06/16/22 17:06) Medications Given in ED Current Medications Medications Dose Ordered Sig/Joellen Route Start Time Stop Time Status Last Admin Dose Admin Ondansetron HCl 8 mg ONCE ONCE IVP 06/16/22 15:45 06/16/22 15:46 DC 06/16/22 15:48 8 MG Pantoprazole 40 mg ONCE ONCE IV 06/16/22 16:45 06/16/22 16:46 DC 06/16/22 17:08 40 MG Vital Signs/I&O 06/16/22 14:32 Temp 36.2 Pulse 66 Resp 19 B/P (MAP) 176/63 (100) O2 Delivery Room Air Blood Pressure Mean: 100 Departure Communication (Admissions) Time/Spoke to Admitting Phy: 18:00 Dr. Rosales Time/Spoke to Consulting Phy: 17:45 Dr. Gregorio Impression Primary Impression: Esophageal obstruction Additional Impressions: Nausea & vomiting Qualified Codes: R11.2 - Nausea with vomiting, unspecified Abnormal CT scan, pelvis Disposition: ADMITTED INPATIENT Condition: Stable Admissions Decision to Admit Reason: Admit from ER (General) Decision to Admit/Date: Jun 16, 2022 Time/Decision to Admit Time: 17:45 Departure-Patient Inst. Referrals: JANNY MAHARAJ MD (PCP) Primary Care Physician CHRISTINA BERNARD APRN (Family) Primary Care Physician ALEJANDRO MCKAY MD Jun 16, 2022 17:06
--- NOTE | 2022-06-16 17:43 | Diagnostic Imaging Report ---
INDICATION: Vomiting and abdominal pain, history of gastric bypass surgery. TECHNIQUE: Multiple contiguous axial images were obtained through the chest, abdomen, and pelvis without the use of intravenous contrast. Auto Exposure Controls were utilized during the CT exam to meet ALARA standards for radiation dose reduction. COMPARISON: 04/10/2022. CT CHEST FINDINGS: There are no enlarged axillary nodes or chest wall lesions. There are no enlarged mediastinal or hilar nodes. The esophagus is fluid-filled, with contrast throughout. There is no pleural or pericardial fluid. There are coronary artery calcifications. Lung parenchymal windows show no focal infiltrates. There is no acute bone abnormality the chest. CT ABDOMEN/PELVIS FINDINGS: The liver shows no focal lesion. Gallbladder appears unremarkable. The spleen, adrenals and pancreas are normal. Kidneys, bilaterally, show no hydronephrosis or acute abnormality. Patient has had previous gastric bypass. The stomach is not distended. There is no retroperitoneal mass or adenopathy. There is no sign of bowel obstruction. There are uncomplicated sigmoid diverticuli. There is no pelvic adenopathy. Sclerotic changes in the bony pelvis are similar to the prior study may represent Paget's disease or bony metastases. IMPRESSION: 1. CT chest appears stable compared to the prior study. The esophagus is distended and fluid-filled with contrast in the esophagus. There is no acute abnormality. The patient has had previous gastric bypass. There are coronary artery calcifications. 2. CT abdomen and pelvis demonstrates evidence of previous gastric bypass. There is no overt gastric outlet obstruction, the gastric pouch is not distended. There is no abdominal soft tissue mass. There are uncomplicated clonic diverticuli. There is no sign of bowel obstruction. Chronic changes in the bony pelvis appear similar to the previous study. Dictated by: Dictated on workstation # [id number]
[2022-06-16] MEDS ORDERED: LACTATED RINGERS 1,000 ML IV ONE (19:26)
[2022-06-16 19:59] VITALS: BP 165/72
[2022-06-16] MEDS ORDERED: PROMETHAZINE INJ 25 MG/ML (PHENERGAN) AMP IVP PRN (21:00)
[2022-06-16] MEDS ORDERED: RT-ALBUTEROL/IPRATROPIUM 3 ML (DUONEB) VIAL INH PRN (21:30)
[2022-06-16] MEDS ORDERED: ONDANSETRON 4 MG/2 ML (SDV) Z0FRAN IV PRN (21:45)
[2022-06-16] MEDS ORDERED: LORazepam 0.5 MG (ATIVAN) TABLET BC PRN (21:45)
[2022-06-16] MEDS: fentaNYL INJ 100 MCG/2 ML AMP IV PRN (22:01)
[2022-06-16] MEDS: LACTATED RINGERS 1,000 ML IV SCH (22:01)
[2022-06-17] VITALS (9 sets, daily range): BP systolic 146–178; BP diastolic 65–84
[2022-06-17] MEDS: fentaNYL INJ 100 MCG/2 ML AMP IV PRN (00:38)
[2022-06-17] MEDS: LACTATED RINGERS 1,000 ML IV SCH ×2 (02:01→08:37)
[2022-06-17] MEDS: RT-ALBUTEROL/IPRATROPIUM 3 ML (DUONEB) VIAL INH SCH ×3 (02:24→15:14)
--- NOTE | 2022-06-17 07:25 | Consultation - Surgery ---
ITALIA DORANTES 06/17/22 0724: History of Present Illness History of Present Illness Patient Consulted On(antonio/time) 06/17/22 07:22 Date Seen by Provider: Jun 17, 2022 Time Seen by Provider: 07:20 History of Present Illness 81yo male with a past medical history of COPD, Afib, HTN, and gastric bypass surgery presented to the ED on 06/16/2022 for nausea and vomiting. He has been experiencing the nausea and vomiting for 2-3 weeks, but it was much worse yesterday. He also says whenever he eats anything it feels like something is getting stuck in his throat. He has had episodes of nausea and vomiting associated with dysphagia in the past. The last episode before the current symptoms was 6-7 weeks ago which the patient said feels the exact same as it does now. At that time the patient said he had an EGD with Dr. Dia, biopsies were performed which showed no evidence of malignancy. Last night he had retrosternal chest pain rated at an 8/10 that was a throbbing pain. He is also experiencing abdominal pain that he says occurs after he eats or drinks anything. Allergies and Home Medications Allergies Coded Allergies: No Known Drug Allergies (Unverified , 04/30/18) Patient Home Medication List Allopurinol (Allopurinol) 100 Mg Tablet, 100 MG PO DAILY, (Reported) Entered as Reported by: FRANK MATHUR on 06/17/221244 Last Action: Reviewed Apixaban (Eliquis) 5 Mg Tablet, 5 MG PO BID, (Reported) Entered as Reported by: FRANK MATHUR on 06/17/221244 Last Action: Reviewed Budesonide/Glycopyr/Formoterol (Breztri Aerosphere Inhaler) 160 Mcg-9 Mcg-4.8 Mcg/Actuation Hfa.aer.ad, 2 PUFF IH BID, (Reported) Entered as Reported by: FRANK MATHUR on 06/17/221244 Last Action: Reviewed Buprenorphine (Butrans) 10 Mcg/Hour Patch.tdwk, 1 EACH TD WEEK, (Reported) Entered as Reported by: FRANK MATHUR on 06/17/221244 Last Action: Reviewed Fluoxetine HCl (Fluoxetine HCl) 40 Mg Capsule, 40 MG PO 1600, (Reported) Entered as Reported by: FRANK MATHUR on 06/17/221244 Last Action: Reviewed Furosemide (Furosemide) 20 Mg Tablet, 20 MG PO DAILY, (Reported) Entered as Reported by: FRANK MATHUR on 06/17/221244 Last Action: Reviewed Loratadine (Loratadine) 10 Mg Tablet, 10 MG PO DAILY, (Reported) Entered as Reported by: FRANK MATHUR on 06/17/221244 Last Action: Reviewed Losartan Potassium (Losartan Potassium) 100 Mg Tablet, 50 MG PO DAILY, (Reported) Entered as Reported by: FRANK MATHUR on 06/17/221244 Last Action: Reviewed Nifedipine (Nifedipine ER) 30 Mg Tablet.er, 30 MG PO DAILY, (Reported) Entered as Reported by: FRANK MATHUR on 06/17/221244 Last Action: Reviewed Potassium Chloride (Potassium Chloride) 10 Meq Capsule.er, 10 MEQ PO DAILY, (Reported) Entered as Reported by: FRANK MATHUR on 06/17/221244 Last Action: Reviewed Pramipexole Di-HCl (Pramipexole Dihydrochloride) 0.125 Mg Tablet, 0.25 MG PO HS, (Reported) Entered as Reported by: FRANK MATHUR on 06/17/221244 Last Action: Reviewed Tamsulosin HCl (Flomax) 0.4 Mg Cap, 0.4 MG PO 1600 AFTER MEAL, (Reported) Entered as Reported by: FRANK MATHUR on 06/17/221244 Last Action: Reviewed Discontinued Medications Albuterol Sulfate (Proair Hfa) 1 Puff Puff, 2 PUFF IH QID PRN for WHEEZING, (Reported) Discontinued Reason: No Longer Taking Entered as Reported by: ROBBIE GIRON on 11/10/19 1209 Last Action: Discontinued Apixaban (Eliquis) 5 Mg Tablet, 5 MG PO BID, (Reported) Discontinued Reason: No Longer Taking Entered as Reported by: MARIAM ZHANG on 04/30/18 105 Last Action: Discontinued Cetirizine HCl (Cetirizine HCl) 10 Mg Tablet, 10 MG PO DAILY, (Reported) Discontinued Reason: No Longer Taking Entered as Reported by: MARIAM ZHANG on 04/30/18 105 Last Action: Discontinued Flecainide Acetate (Flecainide Acetate) 50 Mg Tablet, 50 MG PO BID, (Reported) Discontinued Reason: No Longer Taking Entered as Reported by: ROBBIE GIRON on 11/10/191208 Last Action: Discontinued Fluoxetine HCl (Fluoxetine HCl) 20 Mg Capsule, 20 MG PO 1600, (Reported) Discontinued Reason: No Longer Taking Entered as Reported by: ROBBIE GIRON on 11/10/191208 Last Action: Discontinued Furosemide (Furosemide) 20 Mg Tablet, 20 MG PO 1000, (Reported) Discontinued Reason: No Longer Taking Entered as Reported by: ROBBIE GIRON on 11/10/191208 Last Action: Discontinued Losartan Potassium (Losartan Potassium) 100 Mg Tablet, 100 MG PO DAILY, (Reported) Discontinued Reason: No Longer Taking Entered as Reported by: MARIAM ZHANG on 04/30/18 105 Last Action: Discontinued Pantoprazole Sodium (Pantoprazole Sodium) 40 Mg Tablet.dr, 40 MG PO BID Discontinued Reason: No Longer Taking Prescribed by: SHARIFA YANCEY on 04/10/22 1330 Last Action: Discontinued Potassium Chloride (Potassium Chloride) 10 Meq Tab.er.prt, 10 MEQ PO 1000, (Reported) Discontinued Reason: No Longer Taking Entered as Reported by: MARIAM ZHANG on 04/30/18 1050 Last Action: Discontinued Tamsulosin HCl (Flomax) 0.4 Mg Cap, 0.4 MG PO 1600, (Reported) Discontinued Reason: No Longer Taking Entered as Reported by: ROBBIE GIRON on 11/10/191208 Last Action: Discontinued Umeclidinium [place] (Incruse Ellipta) 62.5 Mcg Blst.w.dev, 1 PUFF IH DAILY@0800 Discontinued Reason: No Longer Taking Prescribed by: SHARIFA YANCEY on 11/11/19 1222 Last Action: Discontinued Past Jbmqdsg-Pyqorh-Vpjmyy Hx Patient Social History Smoking Status: Former Smoker (>25 years smoking "a couple" packs a day. Quit 25 years ago) Former Smoker, Quit: Apr 30, 1995 Type Used: Cigarettes 2nd Hand Smoke Exposure: No Recent Hopitalizations: No Alcohol Use?: Yes (3 drinks a week, scotch and beer) Have you traveled recently?: No Immunizations Up To Date Tetanus Booster (TDap): Unknown Date of Pneumonia Vaccine: Sep 15, 2019 Date of Influenza Vaccine: Sep 08, 2019 Surgeries History of Surgeries: Yes (loop recorder, cardioversion) Surgeries: Abdominal (gastric bypas), Defibrillator, Tonsillectomy Respiratory History of Respiratory Disorde: Yes Respiratory Disorders: COPD Cardiovascular History of Cardiac Disorders: Yes Cardiac Disorders: Atrial Fibrillation, Hypertension Neurological History of Neurological Disord: No Genitourinary History of Genitourinary Disor: Yes (CHRONIC RENAL ISUFFICIENCY. ) Genitourinary Disorders: Prostate Problems, Renal Failure Gastrointestinal History of Gastrointestinal Di: Yes Gastrointestinal Disorders: Gastroesophageal Reflux Musculoskeletal History of Musculoskeletal Dis: Yes Musculoskeletal Disorders: Chronic Back Pain, Gout Endocrine History of Endocrine Disorders: No Endocrine Disorders: Diabetes, Non-Insulin dep (said he might be diabetic, but does not take insulin) HEENT History of HEENT Disorders: No Hearing Impairment: Hard of Hearing, Hearing Aide Right Cancer History of Cancer: No Psychosocial History of Psychiatric Problem: No Integumentary History of Skin or Integumenta: No Blood Transfusions History of Blood Disorders: No Family Medical History Significant Family History: Cancer (dad diagnosed with and at age 54 from metastatic lung cancer.), Diabetes (Sisters both have diabetes. Parents do not have history of diabetes.) Review of Systems-General Constitutional: No chills, No diaphoresis, No fever EENTM: throat pain (from vomiting); No vision loss, No hoarseness Respiratory: No cough, No short of breath, No wheezing Gastrointestinal: abdominal pain (diffuse abdominal pain, worst in epigastric); No diarrhea; heartburn; No melena; nausea, vomiting Genitourinary: decreased output, dysuria; No hematuria Musculoskeletal: back pain, gout, joint pain Skin: dryness; No rash; other (surgical scars on abdomen) Psychiatric/Neurological: Denies Anxiety, Denies Depressed; Headache Physical Exam-General Problems Physical Exam Vital Signs Vital Signs - First Documented 06/16/22 06/16/22 06/16/22 14:32 19:10 21:05 Temp 36.2 Pulse 66 Resp 19 B/P (MAP) 176/63 (100) Pulse Ox 99 O2 Delivery Room Air FiO2 21 Capillary Refill : Less Than 3 Seconds General Appearance: no apparent distress, obese HEENT: PERRL/EOMI; No scleral icterus (R), No scleral icterus (L) Neck: non-tender, supple Respiratory: lungs clear, normal breath sounds, no respiratory distress, no accessory muscle use Cardiovascular: regular rate, rhythm, no murmur Gastrointestinal: normal bowel sounds, soft, tenderness (diffusely tender, worse in epigastric) Extremities: calf tenderness (b/l), pedal edema (2+), other (dilated veins on legs b/l) Neurologic/Psychiatric: alert, normal mood/affect, oriented x 3 Skin: normal color, warm/dry Lymphatic: no adenopathy Data Review Labs Laboratory Tests 06/16/22 14:02: White Blood Count 8.1, Red Blood Count 3.99L, Hemoglobin 11.3L, Hematocrit 35L, Mean Corpuscular Volume 87, Mean Corpuscular Hemoglobin 28, Mean Corpuscular Hemoglobin Concent 33, Red Cell Distribution Width 15.8H, Platelet Count 224, Mean Platelet Volume 10.3, Immature Granulocyte % (Auto) 0, Neutrophils (%) (Auto) 68, Lymphocytes (%) (Auto) 25, Monocytes (%) (Auto) 6, Eosinophils (%) (Auto) 1, Basophils (%) (Auto) 1, Neutrophils # (Auto) 5.6, Lymphocytes # (Auto) 2.0, Monocytes # (Auto) 0.5, Eosinophils # (Auto) 0.1, Basophils # (Auto) 0.0, Immature Granulocyte # (Auto) 0.0, Sodium Level 139, Potassium Level 4.3, Chloride Level 108H, Carbon Dioxide Level 19L, Anion Gap 12, Blood Urea Nitrogen 27H, Creatinine 1.36H, Estimat Glomerular Filtration Rate 53, BUN/Creatinine Ratio 20, Glucose Level 87, Calcium Level 9.7, Corrected Calcium 9.6, Total Bilirubin 0.8, Aspartate Amino Transf (AST/SGOT) 15, Alanine Aminotransferase (ALT/SGPT) 14, Alkaline Phosphatase 146H, Total Protein 6.8, Albumin 4.1 06/16/22 15:50: Urine Color YELLOW, Urine Clarity CLEAR, Urine pH 8.0, Urine Specific [place] 1.010L, Urine Protein NEGATIVE, Urine Glucose (UA) NEGATIVE, Urine Ketones NEGATIVE, Urine Nitrite NEGATIVE, Urine Bilirubin NEGATIVE, Urine Urobilinogen 1.0, Urine Leukocyte Esterase NEGATIVE, Urine RBC (Auto) NEGATIVE, Urine RBC NONE, Urine WBC NONE, Urine Crystals NONE, Urine Bacteria NEGATIVE, Urine Casts NONE, Urine Mucus NEGATIVE, Urine Culture Indicated NO Assessment/Plan Assessment/Plan Assessment/Plan Dysphagia Esophageal Obstruction N/V Continue patient on IV fluids and Protonix 40mg. Fentenyl for pain control. Zofran 4mg IV q4H. Continue patient on NPO orders. EGD today. RAFI DIA DO 06/17/22 1307: History of Present Illness History of Present Illness Time Seen by Provider: 12:34 History of Present Illness Surgery asked to consult regarding, esophageal obstruction. HPI per IM: 81 yo male came in due to dry heaves, unable to keep down anything, even water, has had problems for a bit but worse as of 2 am Friday. Denies f ever. Reports had some procedure done on his esophagus 7 weeks ago for similar problem. When I spoke to pt he was ok, but still unable to swallow or "get anything down". Nausea is controlled and hasn't had vomiting since he came into the ER. I got report from ER physician last night that they had tried to do CT with contrast, but none of the contrast made it into the stomach; "it stopped at bottom of esophagus". Allergies and Home Medications Allergies Coded Allergies: No Known Drug Allergies (Unverified , 04/30/18) Patient Home Medication List Home Medication List Reviewed: Yes Allopurinol (Allopurinol) 100 Mg Tablet, 100 MG PO DAILY, (Reported) Entered as Reported by: FRANK MATHUR on 06/17/221244 Last Action: Reviewed Apixaban (Eliquis) 5 Mg Tablet, 5 MG PO BID, (Reported) Entered as Reported by: FRANK MATHUR on 06/17/221244 Last Action: Reviewed Budesonide/Glycopyr/Formoterol (Breztri Aerosphere Inhaler) 160 Mcg-9 Mcg-4.8 Mcg/Actuation Hfa.aer.ad, 2 PUFF IH BID, (Reported) Entered as Reported by: FRANK MATHUR on 06/17/221244 Last Action: Reviewed Buprenorphine (Butrans) 10 Mcg/Hour Patch.tdwk, 1 EACH TD WEEK, (Reported) Entered as Reported by: FRANK MATHUR on 06/17/221244 Last Action: Reviewed Fluoxetine HCl (Fluoxetine HCl) 40 Mg Capsule, 40 MG PO 1600, (Reported) Entered as Reported by: FRANK MATHUR on 06/17/221244 Last Action: Reviewed Furosemide (Furosemide) 20 Mg Tablet, 20 MG PO DAILY, (Reported) Entered as Reported by: FRANK MATHUR on 06/17/221244 Last Action: Reviewed Loratadine (Loratadine) 10 Mg Tablet, 10 MG PO DAILY, (Reported) Entered as Reported by: FRANK MATHUR on 06/17/221244 Last Action: Reviewed Losartan Potassium (Losartan Potassium) 100 Mg Tablet, 50 MG PO DAILY, (Reported) Entered as Reported by: FRANK MATHUR on 06/17/221244 Last Action: Reviewed Nifedipine (Nifedipine ER) 30 Mg Tablet.er, 30 MG PO DAILY, (Reported) Entered as Reported by: FRANK MATHUR on 06/17/221244 Last Action: Reviewed Potassium Chloride (Potassium Chloride) 10 Meq Capsule.er, 10 MEQ PO DAILY, (Reported) Entered as Reported by: FRANK MATHUR on 06/17/221244 Last Action: Reviewed Pramipexole Di-HCl (Pramipexole Dihydrochloride) 0.125 Mg Tablet, 0.25 MG PO HS, (Reported) Entered as Reported by: FRANK MATHUR on 06/17/221244 Last Action: Reviewed Tamsulosin HCl (Flomax) 0.4 Mg Cap, 0.4 MG PO 1600 AFTER MEAL, (Reported) Entered as Reported by: FRANK MATHUR on 06/17/221244 Last Action: Reviewed Discontinued Medications Albuterol Sulfate (Proair Hfa) 1 Puff Puff, 2 PUFF IH QID PRN for WHEEZING, (Reported) Discontinued Reason: No Longer Taking Entered as Reported by: ROBBIE GIRON on 11/10/19 1209 Last Action: Discontinued Apixaban (Eliquis) 5 Mg Tablet, 5 MG PO BID, (Reported) Discontinued Reason: No Longer Taking Entered as Reported by: MARIAM ZHANG on 04/30/18 105 Last Action: Discontinued Cetirizine HCl (Cetirizine HCl) 10 Mg Tablet, 10 MG PO DAILY, (Reported) Discontinued Reason: No Longer Taking Entered as Reported by: MARIAM ZHANG on 04/30/18 105 Last Action: Discontinued Flecainide Acetate (Flecainide Acetate) 50 Mg Tablet, 50 MG PO BID, (Reported) Discontinued Reason: No Longer Taking Entered as Reported by: ROBBIE GIRON on 11/10/191208 Last Action: Discontinued Fluoxetine HCl (Fluoxetine HCl) 20 Mg Capsule, 20 MG PO 1600, (Reported) Discontinued Reason: No Longer Taking Entered as Reported by: ROBBIE GIRON on 11/10/191208 Last Action: Discontinued Furosemide (Furosemide) 20 Mg Tablet, 20 MG PO 1000, (Reported) Discontinued Reason: No Longer Taking Entered as Reported by: ROBBIE GIRON on 11/10/191208 Last Action: Discontinued Losartan Potassium (Losartan Potassium) 100 Mg Tablet, 100 MG PO DAILY, (Reported) Discontinued Reason: No Longer Taking Entered as Reported by: MARIAM ZHANG on 04/30/18 1052 Last Action: Discontinued Pantoprazole Sodium (Pantoprazole Sodium) 40 Mg Tablet.dr, 40 MG PO BID Discontinued Reason: No Longer Taking Prescribed by: SHARIFA YANCEY on 04/10/22 1330 Last Action: Discontinued Potassium Chloride (Potassium Chloride) 10 Meq Tab.er.prt, 10 MEQ PO 1000, (Reported) Discontinued Reason: No Longer Taking Entered as Reported by: MARIAM ZHANG on 04/30/18 1050 Last Action: Discontinued Tamsulosin HCl (Flomax) 0.4 Mg Cap, 0.4 MG PO 1600, (Reported) Discontinued Reason: No Longer Taking Entered as Reported by: ROBBIE GIRON on 11/10/191208 Last Action: Discontinued Umeclidinium [place] (Incruse Ellipta) 62.5 Mcg Blst.w.dev, 1 PUFF IH DAILY@0800 Discontinued Reason: No Longer Taking Prescribed by: SHARIFA YANCEY on 11/11/19 1222 Last Action: Discontinued Past Aslnpqz-Lezebc-Ymwjtc Hx Patient Social History Smoking Status: Former Smoker (>25 years smoking "a couple" packs a day. Quit 25 years ago) Alcohol Use?: Yes (3 drinks a week, scotch and beer) Surgeries History of Surgeries: Yes Surgeries: Abdominal (gastric bypas), Defibrillator, Tonsillectomy Respiratory History of Respiratory Disorde: Yes Respiratory Disorders: COPD Cardiovascular History of Cardiac Disorders: Yes Cardiac Disorders: Atrial Fibrillation, Coronary Artery Disease, Hypertension Neurological History of Neurological Disord: Yes Neurological Disorders: Neuropathy Genitourinary History of Genitourinary Disor: Yes Genitourinary Disorders: Benign Prostatic Hyperpl, Renal Failure Gastrointestinal History of Gastrointestinal Di: Yes Gastrointestinal Disorders: Gastroesophageal Reflux Musculoskeletal History of Musculoskeletal Dis: Yes Musculoskeletal Disorders: Chronic Back Pain, Gout Endocrine History of Endocrine Disorders: Yes Endocrine Disorders: Diabetes, Non-Insulin dep (said he might be diabetic, but does not take insulin) HEENT Hearing Impairment: Hard of Hearing Cancer History of Cancer: No Psychosocial History of Psychiatric Problem: No Integumentary History of Skin or Integumenta: No Family Medical History Significant Family History: Cancer (dad diagnosed with and at age 54 from metastatic lung cancer.), Diabetes (Sisters both have diabetes. Parents do not have history of diabetes.) Review of Systems-General Constitutional: No chills, No diaphoresis, No fever EENTM: throat pain (from vomiting); No vision loss, No hoarseness, No epistaxis Respiratory: No cough, No short of breath, No wheezing Gastrointestinal: abdominal pain (diffuse abdominal pain, worst in epigastric); No diarrhea; heartburn; No melena; nausea, vomiting Genitourinary: decreased output, dysuria; No hematuria Musculoskeletal: back pain, gout, joint pain, joint swelling, muscle stiffness Skin: dryness; No rash; other (surgical scars on abdomen) Psychiatric/Neurological: Denies Anxiety, Denies Depressed, Denies Headache, Denies Seizure Physical Exam-General Problems Physical Exam General Appearance: no apparent distress, obese Eyes: Bilateral Eye PERRL, Bilateral Eye EOMI HEENT: pharynx normal; No scleral icterus (R), No scleral icterus (L) Neck: non-tender, supple Respiratory: lungs clear, normal breath sounds, no respiratory distress, no accessory muscle use Cardiovascular: regular rate, rhythm, no murmur Gastrointestinal: normal bowel sounds, soft, tenderness (diffusely tender, worse in epigastric) Rectal: deferred Extremities: calf tenderness (b/l), pedal edema (2+), other (dilated veins on legs b/l) Neurologic/Psychiatric: alert, normal mood/affect, oriented x 3 Skin: normal color, warm/dry Lymphatic: no adenopathy (neck, axilla or groin) Data Review Radiology Date of Exam:06/16/22 CT CHEST/ABDOMEN/PELVIS WO INDICATION: Vomiting and abdominal pain, history of gastric bypass surgery. TECHNIQUE: Multiple contiguous axial images were obtained through the chest, abdomen, and pelvis without the use of intravenous contrast. Auto Exposure Controls were utilized during the CT exam to meet ALARA standards for radiation dose reduction. COMPARISON: 04/10/2022. CT CHEST FINDINGS: There are no enlarged axillary nodes or chest wall lesions. There are no enlarged mediastinal or hilar nodes. The esophagus is fluid-filled, with contrast throughout. There is no pleural or pericardial fluid. There are coronary artery calcifications. Lung parenchymal windows show no focal infiltrates. There is no acute bone abnormality the chest. CT ABDOMEN/PELVIS FINDINGS: The liver shows no focal lesion. Gallbladder appears unremarkable. The spleen, adrenals and pancreas are normal. Kidneys, bilaterally, show no hydronephrosis or acute abnormality. Patient has had previous gastric bypass. The stomach is not distended. There is no retroperitoneal mass or adenopathy. There is no sign of bowel obstruction. There are uncomplicated sigmoid diverticuli. There is no pelvic adenopathy. Sclerotic changes in the bony pelvis are similar to the prior study may represent Paget's disease or bony metastases. IMPRESSION: 1. CT chest appears stable compared to the prior study. The esophagus is distended and fluid-filled with contrast in the esophagus. There is no acute abnormality. The patient has had previous gastric bypass. There are coronary artery calcifications. 2. CT abdomen and pelvis demonstrates evidence of previous gastric bypass. There is no overt gastric outlet obstruction, the gastric pouch is not distended. There is no abdominal soft tissue mass. There are uncomplicated clonic diverticuli. There is no sign of bowel obstruction. Chronic changes in the bony pelvis appear similar to the previous study. Dictated by: Dictated on workstation # [id number] Dict: 06/16/22 1733 Trans: 06/16/22 182 [facility] [id number] Interpreted by: SIMON THORNE MD Electronically signed by: SIMON THORNE MD 06/16/22 182 Assessment/Plan Assessment/Plan Assessment/Plan Dysphagia Esophageal Obstruction N/V Continue patient on IV fluids and Protonix 40mg. Fentenyl for pain control. Zofran 4mg IV q4H. Continue patient on NPO orders. EGD today; discussed risks and complications, not limited to pain, bleeding, infection, esophageal perforation and need for further procedure. Supervisory-Addendum Brief Verification & Attestation Participated in pt care: history, MDM, physical Personally performed: exam, history, MDM, supervision of care Care discussed with: Medical Student Procedures: n/a Verification and Attestation of Medical Student E/M Service A medical student performed and documented this service. I then reviewed and verified all information documented by the medical student and made modifications to such information, when appropriate. I personally performed a physical exam, medical decision making and then discussed any differences between the notes and made revisions as necessary to create one note. Rafi Dia , 06/17/22 , 13:07 ITALIA DORANTES Jun 17, 2022 07:24 RAFI DIA DO Jun 17, 2022 13:07
[2022-06-17] MEDS ORDERED: PANTOPRAZOLE 40 MG (PROTONIX) VIAL IV SCH (09:00)
[2022-06-17 09:01] LABS: HEMATOCRIT 32 % (40-54); HEMOGLOBIN 10.4 g/dL (13.3-17.7); MEAN CORPUSCULAR HEMOGLOBIN 28 pg (25-34); MEAN CORPUSCULAR HGB CONC 32 g/dL (32-36); MEAN CORPUSCULAR VOLUME 89 fL (80-99); MEAN PLATELET VOLUME 10.6 fL (9.0-12.2); PLATELET COUNT 187 10^3/uL (130-400); WHITE BLOOD COUNT 7.9 10^3/uL (4.3-11.0)
[2022-06-17 09:21] LABS: CALCIUM 8.9 MG/DL (8.5-10.1); CREATININE SERUM 1.32 MG/DL (0.60-1.30); POTASSIUM 3.7 MMOL/L (3.6-5.0)
--- NOTE | 2022-06-17 11:41 | History & Physical ---
HPI History of Present Illness: 81 yo male came in due to dry heaves, unable to keep down anything, even water, has had problems for a bit but worse as of 2 am Friday. Denies fever. Reports had some procedure done on his esophagus 7 weeks ago for similar problem. Date seen by provider: Jun 17, 2022 Time Seen by Provider: 11:40 Attending Physician Emilia Loo MD PCP Admitting Physician: Aniya Rosales MD Attending Physician: Sharifa Yancey MD Consult Date of Admission Jun 16, 2022 at 17:45 Home Medications Home Medications Reviewed patient Home Medication Reconciliation performed by pharmacy medication reconciliations aviation electrical technician and/or nursing. Patients Allergies have been reviewed. Allergies Coded Allergies: No Known Drug Allergies (Unverified , 04/30/18) [id number]-[id number] Hx Patient Social History Smoking Status: Former Smoker (>25 years smoking "a couple" packs a day. Quit 25 years ago) 2nd Hand Smoke Exposure: No Recent Hopitalizations: No Alcohol Use?: Yes (3 drinks a week, scotch and beer) Have you traveled recently?: No Immunizations Up To Date Tetanus Booster (TDap): Unknown Influenza Vaccine Up-to-Date: Yes; Up-to-Date First/Initial COVID19 Vaccinat: 2020 Second COVID19 Vaccination Ashish: 2020 Third COVID19 Vaccination Date: 2020 Past Medical History PMHx: HTN HLD COPD A fib CKD CHF Gout GERD DMII SurgHx: Gastric bypass Tonsillectomy Cardioversions for A fib Cardiac ablation for A fib Loop Recorder Pacemaker/defibrillator Family Medical History Significant Family History: Cancer (dad diagnosed with and at age 54 from metastatic lung cancer.), Diabetes (Sisters both have diabetes. Parents do not have history of diabetes.) Other Significan Family Hx: SOCIAL HISTORY: -SMOKED 2 PPD, QUIT 25 YEARS AGO -ETOH--HISTORY OF VERY HEAVY USE, STATES NOW HE ONLY DRINKS "OCCASIONALLY" -DENIES DRUG USE PAST SURGICAL HISTORY: -GASTRIC BYPASS -CARDIOVERSIONS FOR ATRIAL FIBRILLATION -CARDIAC ABLATION 03/[address] HERNANDEZ -LOOP RECORDER. -PACEMAKER/DEFIBRILLATOR -TONSILLECTOMY Review of Systems ([facility]) Constitutional: No fever Respiratory: No short of breath Cardiovascular: No chest pain Gastrointestinal: abdominal pain (generalized); No constipation, No diarrhea; nausea, vomiting Genitourinary: No dysuria; hesitancy Reviewed Test Results Reviewed Test Results Lab Laboratory Tests Test 06/16/22 14:02 06/16/22 15:50 06/17/22 08:55 Range/Units White Blood Count 8.1 7.9 4.3-11.0 10^3/uL Red Blood Count 3.99 L 3.66 L 4.30-5.52 10^6/uL Hemoglobin 11.3 L 10.4 L 13.3-17.7 g/dL Hematocrit 35 L 32 L 40-54 % Mean Corpuscular Volume 87 89 80-99 fL Mean Corpuscular Hemoglobin 28 28 25-34 pg Mean Corpuscular Hemoglobin Concent 33 32 32-36 g/dL Red Cell Distribution Width 15.8 H 15.9 H 10.0-14.5 % Platelet Count 224 187 130-400 10^3/uL Mean Platelet Volume 10.3 10.6 9.0-12.2 fL Immature Granulocyte % (Auto) 0 % Neutrophils (%) (Auto) 68 42-75 % Lymphocytes (%) (Auto) 25 12-44 % Monocytes (%) (Auto) 6 0-12 % Eosinophils (%) (Auto) 1 0-10 % Basophils (%) (Auto) 1 0-10 % Neutrophils # (Auto) 5.6 1.8-7.8 X 10^3 Lymphocytes # (Auto) 2.0 1.0-4.0 X 10^3 Monocytes # (Auto) 0.5 0.0-1.0 X 10^3 Eosinophils # (Auto) 0.1 0.0-0.3 10^3/uL Basophils # (Auto) 0.0 0.0-0.1 10^3/uL Immature Granulocyte # (Auto) 0.0 0.0-0.1 10^3/uL Sodium Level 139 143 135-145 MMOL/L Potassium Level 4.3 3.7 3.6-5.0 MMOL/L Chloride Level 108 H 111 H 98-107 MMOL/L Carbon Dioxide Level 19 L 21 21-32 MMOL/L Anion Gap 12 11 5-14 MMOL/L Blood Urea Nitrogen 27 H 24 H 7-18 MG/DL Creatinine 1.36 H 1.32 H 0.60-1.30 MG/DL Estimat Glomerular Filtration Rate 53 55 BUN/Creatinine Ratio 20 18 Glucose Level 87 91 70-105 MG/DL Calcium Level 9.7 8.9 8.5-10.1 MG/DL Corrected Calcium 9.6 8.5-10.1 MG/DL Total Bilirubin 0.8 0.1-1.0 MG/DL Aspartate Amino Transf (AST/SGOT) 15 5-34 U/L Alanine Aminotransferase (ALT/SGPT) 14 0-55 U/L Alkaline Phosphatase 146 H 40-136 U/L Total Protein 6.8 6.4-8.2 GM/DL Albumin 4.1 3.2-4.5 GM/DL Urine Color YELLOW Urine Clarity CLEAR Urine pH 8.0 5-9 Urine Specific [place] 1.010 L 1.016-1.022 Urine Protein NEGATIVE NEGATIVE Urine Glucose (UA) NEGATIVE NEGATIVE Urine Ketones NEGATIVE NEGATIVE Urine Nitrite NEGATIVE NEGATIVE Urine Bilirubin NEGATIVE NEGATIVE Urine Urobilinogen 1.0 < = 1.0 MG/DL Urine Leukocyte Esterase NEGATIVE NEGATIVE Urine RBC (Auto) NEGATIVE NEGATIVE Urine RBC NONE /HPF Urine WBC NONE /HPF Urine Crystals NONE /LPF Urine Bacteria NEGATIVE /HPF Urine Casts NONE /LPF Urine Mucus NEGATIVE /LPF Urine Culture Indicated NO Radiology CT chest/abdomen/pelvis 06/16/22: 1. CT chest appears stable compared to the prior study. The esophagus is distended and fluid-filled with contrast in the esophagus. There is no acute abnormality. The patient has had previous gastric bypass. There are coronary artery calcifications. 2. CT abdomen and pelvis demonstrates evidence of previous gastric bypass. There is no overt gastric outlet obstruction, the gastric pouch is not distended. There is no abdominal soft tissue mass. There are uncomplicated clonic diverticuli. There is no sign of bowel obstruction. Chronic changes in the bony pelvis appear similar to the previous study. Physical Exam-([facility]) Physical Exam Vital Signs VS - Last 72 Hours, by Label 06/16/22 06/16/22 06/16/22 06/16/22 14:32 19:10 19:59 20:09 Temp 36.2 35.9 36.8 Pulse 66 76 90 Resp 19 15 20 B/P (MAP) 176/63 (100) 141/82 165/72 (103) Pulse Ox 99 98 98 O2 Delivery Room Air Room Air Room Air Room Air 06/16/22 06/16/22 06/17/2212/22 21:05 21:24 00:17 02:24 Temp 36.7 Pulse 96 Resp 20 B/P (MAP) 158/70 (99) Pulse Ox 98 98 99 97 O2 Delivery Room Air Room Air Room Air FiO2 21 06/17/22 06/17/22 06/17/22 06/17/22 03:59 06:56 08:00 12:00 Temp 36.6 36.7 36.6 Pulse 61 61 57 Resp 20 18 18 B/P (MAP) 160/70 (100) 147/70 (95) 178/66 (103) Pulse Ox 97 96 97 99 O2 Delivery Room Air Room Air Room Air Room Air 06/17/22 06/17/22 06/17/22 06/17/22 13:50 13:55 14:00 14:05 Pulse 59 60 59 62 Resp 16 16 16 16 Pulse Ox 100 96 97 96 O2 Delivery OxyMask Room Air Room Air Room Air O2 Flow Rate 10.00 Capillary Refill : Less Than 3 Seconds General Appearance: WD/WN, no apparent distress Respiratory: lungs clear, normal breath sounds Cardiovascular: regular rate, rhythm, no murmur Gastrointestinal: normal bowel sounds, soft, guarding (right side), tenderness (right side) Neurologic/Psychiatric: alert, normal mood/affect Skin: normal color, warm/dry Assessment/Plan Assessment/Plan Admission Status: Observation (1) Esophageal obstruction Status: Acute Assessment & Plan: Surgery consulted, appreciate recommendations. Had EGD in April with inflammation noted. (2) Nausea & vomiting Status: Acute Qualifiers: Qualified Codes: R11.2 - Nausea with vomiting, unspecified (3) BPH (benign prostatic hyperplasia) Status: Chronic (4) Afib (5) Hypertension Status: Chronic (6) DVT prophylaxis Status: Acute Assessment & Plan: Home anticoagulation SHARIFA YANCEY MD Jun 17, 2022 11:41
[2022-06-17] MEDS ORDERED: BUDE10.7 IH (12:45)
[2022-06-17] MEDS ORDERED: PRAM0.128 PO (12:45)
[2022-06-17] MEDS ORDERED: APIX5TAB PO (12:45)
[2022-06-17] MEDS ORDERED: LOSA100T57 PO (12:45)
[2022-06-17] MEDS ORDERED: BUPR1PAT2 TD (12:45)
[2022-06-17] MEDS ORDERED: POTA10CA43 PO (12:45)
[2022-06-17] MEDS ORDERED: ALLO100T PO (12:45)
[2022-06-17] MEDS ORDERED: TMSL.4C PO (12:45)
[2022-06-17] MEDS ORDERED: FLUO40CA PO (12:45)
[2022-06-17] MEDS ORDERED: LORA10TA7 PO (12:45)
[2022-06-17] MEDS ORDERED: NIFE30TA89 PO (12:45)
[2022-06-17] MEDS ORDERED: FURO20TA4 PO (12:45)
[2022-06-17] MEDS ORDERED: LACTATED RINGERS 1,000 ML IV STA (13:13)
[2022-06-17] MEDS ORDERED: HURRICAINE EXT TUBE (BENZOCAINE) XX PRN (13:15)
[2022-06-17] MEDS ORDERED: KETAMINE 50 MG/5 ML SYRINGE ONE (13:36)
[2022-06-17] MEDS ORDERED: PROPOFOL INJECTION 50 ML IV ONE (13:37)
--- NOTE | 2022-06-17 13:55 | Progress Note-Post Operative ---
Post-Operative Progess Note Surgeon (s)/Electronics Maintenance Technician (s) Surgeon RAFI DIA DO Electronics Maintenance Technician: none Pre-Operative Diagnosis Dysphagia, GERD Post-Operative Diagnosis Esophageal obstruction with food Esophageal inflammation Procedure & Operative Findings Date of Procedure 06/17/22 Procedure Performed/Findings EGD PROCEDURE NOTE: After informed consent was obtained, the patient was brought to the endoscopy suite, placed in bed in left lateral decubitus position. He was administered IV sedation by the VALUE ANALYST who then monitored vitals the entire time, heart rate, blood pressure and pulse ox and the scope was inserted down the mouth through the esophagus almost to gastric remnant. However, just above his Chandu En-Y anastomosis saw inflammation in a ring pattern. There was a small string of food (looked lik chicken) and when I looked into the stomach remnant I found a large piece of food that had not been chewed. It had already dislodged from the Esophagus. I took a picture of the esophagus, the inflammation and the food. I pushed into the stomach and into the Chandu limb, it looked good. I elected to not do a biopsy of the inflammed area. At this point I pulled the scope up the esophagus and out of the mouth. The patient tolerated the procedure and he was recovered in endoscopy suite. Anesthesia Type IV sedation by VALUE ANALYST Estimated Blood Loss Estimated blood loss (mL): scant Specimens/Packing Specimens Removed none RAFI DIA DO Jun 17, 2022 13:55
--- NOTE | 2022-06-17 14:12 | Anesthesia-General Post-Op ---
MAC Patient Condition Mental Status/LOC: Same as Preop Cardiovascular: Satisfactory Nausea/Vomiting: Absent Respiratory: Satisfactory Pain: Controlled Complications: Absent Post Op Complications Complications None Follow Up Care/Instructions Patient Instructions None needed. Anesthesiology Discharge Order Discharge Order Patient is doing well, no complaints, stable vital signs, no apparent adverse anesthesia problems. No complications reported per nursing. GILL LEONARD CRNA Jun 17, 2022 14:12
[2022-06-17] MEDS ORDERED: PANT40TA52 PO (15:00)
--- NOTE | 2022-06-17 15:00 | Discharge Summary ---
Discharge Summary Hospital Course Problems/Diagnosis: (1) Esophageal obstruction Status: Resolved Resolution Date/Time: 06/18/22 @ 18:59 Assessment & Plan: Surgery consulted, appreciate recommendations. Had EGD in April with inflammation noted. Repeat EGD done and unchewed food noted that had passed esophagus by time of EGD. Resumed PPI on d/c. (2) Nausea & vomiting Status: Resolved Resolution Date/Time: 06/18/22 @ 18:59 Qualifiers: Qualified Codes: R11.2 - Nausea with vomiting, unspecified (3) BPH (benign prostatic hyperplasia) Status: Chronic (4) Afib (5) Hypertension Status: Chronic Hospital Course Date of Admission: Jun 16, 2022 at 17:45 Admission Diagnosis : See problem list Family Physician/Provider: Emilia Loo MD Date of Discharge: 06/17/22 Discharge Diagnosis: See problem list Hospital Course: Pt admitted with inability to keep down anything for last couple of days, found to have food obstruction of esophagus that had already passed into stomach at time of EGD. Tolerated oral after EGD and was discharged on PPI. Labs and Pending Lab Test: Laboratory Tests 06/16/22 15:50: Urine Color YELLOW, Urine Clarity CLEAR, Urine pH 8.0, Urine Specific [place] 1.010L, Urine Protein NEGATIVE, Urine Glucose (UA) NEGATIVE, Urine Ketones NEGATIVE, Urine Nitrite NEGATIVE, Urine Bilirubin NEGATIVE, Urine Urobilinogen 1.0, Urine Leukocyte Esterase NEGATIVE, Urine RBC (Auto) NEGATIVE, Urine RBC NONE, Urine WBC NONE, Urine Crystals NONE, Urine Bacteria NEGATIVE, Urine Casts NONE, Urine Mucus NEGATIVE, Urine Culture Indicated NO 06/17/22 08:55: White Blood Count 7.9, Red Blood Count 3.66L, Hemoglobin 10.4L, Hematocrit 32L, Mean Corpuscular Volume 89, Mean Corpuscular Hemoglobin 28, Mean Corpuscular Hemoglobin Concent 32, Red Cell Distribution Width 15.9H, Platelet Count 187, Mean Platelet Volume 10.6, Sodium Level 143, Potassium Level 3.7, Chloride Level 111H, Carbon Dioxide Level 21, Anion Gap 11, Blood Urea Nitrogen 24H, Creatinine 1.32H, Estimat Glomerular Filtration Rate 55, BUN/Creatinine Ratio 18, Glucose Level 91, Calcium Level 8.9 Home Meds Active Pantoprazole Sodium 40 Mg Tablet.dr 40 Mg PO DAILY Reported Loratadine 10 Mg Tablet 10 Mg PO DAILY Furosemide 20 Mg Tablet 20 Mg PO DAILY Potassium Chloride 10 Meq Capsule.er 10 Meq PO DAILY Breztri Aerosphere Inhaler (Budesonide/Glycopyr/Formoterol) 160 Mcg-9 Mcg-4.8 Mcg/Actuation Hfa.aer.ad 2 Puff IH BID Fluoxetine HCl 40 Mg Capsule 40 Mg PO 1600 Butrans (Buprenorphine) 10 Mcg/Hour Patch.tdwk 1 Each TD WEEK Flomax (Tamsulosin HCl) 0.4 Mg Cap 0.4 Mg PO 1600 AFTER MEAL Eliquis (Apixaban) 5 Mg Tablet 5 Mg PO BID Nifedipine ER (Nifedipine) 30 Mg Tablet.er 30 Mg PO DAILY Allopurinol 100 Mg Tablet 100 Mg PO DAILY Losartan Potassium 100 Mg Tablet 50 Mg PO DAILY TAKES OF A 100MG TAB Pramipexole Dihydrochloride (Pramipexole Di-HCl) 0.125 Mg Tablet 0.25 Mg PO HS TAKES 2 (0.125MG) TABS Assessment/Pt DC Instructions Follow up with primary doctor within a week of discharge. Discharge Diet: Cardiac Diet Activity as Tolerated: Yes Discharge Physical Examination Allergies: Coded Allergies: No Known Drug Allergies (Unverified , 04/30/18) SHARIFA YANCEY MD Jun 17, 2022 15:00
== END 2022-06-17 13:45 | disposition home or self-care (01) ==
LOC: EDUNIT# 14:06 → ER 14:07 → UNDOADMOB 17:45 → 4TH 17:45 → UNDODISOB 06-17 13:45
PROVIDERS: ADMIT Family Medicine; ATTEND Family Medicine
DX: K22.2 Esophageal obstruction (principal); R11.2 Nausea with vomiting, unspecified; N40.0 Benign prostatic hyperplasia without lower urinary tract symptoms; I48.91 Unspecified atrial fibrillation; I10 Essential (primary) hypertension; Z79.899 Other long term (current) drug therapy; Z87.891 Personal history of nicotine dependence
CPT/HCPCS: 36415; 71250; 74176; 80048; 80053; 81000; 85025; 85027; 87081; 94640; 94664; 94760; 96375; 96376; G0378

== ENCOUNTER → 2023-02-05 | Day surgery (SDC) | payer MEDICARE ==
[~2023-02-05] MED LIST changes: +ALBU8.5H6 IH; +BUDE10.7 IH; +BUPR1PAT2 TD; +FLUO40CA PO; +LIDOCAINE 1% INJ 20 ML VIAL ONE; +LORA10TA7 PO; +NIFE30TA89 PO; +POTA10CA44 PO; +PRAM0.128 PO
--- NOTE | 2023-02-05 11:08 | Implantation of Loop Monitor ---
Implant of Loop Monitior IMPLANTATION OF LOOP MONITOR REPORT DATE OF PROCEDURE: 02/05/23 PREOP DIAGNOSIS: Paroxysmal atrial fibrillation POSTOP DIAGNOSIS: Paroxysmal atrial fibrillation PROCEDURE DETAILS: The patient is a 82 male with history of paroxysmal atrial fibrillation requiring long-term surveillance. Therefore implantable loop recorder was discussed and agreed with the patient. Informed consent was taken. All risks and complications were discussed at length. The patient was draped and prepped in the usual sterile fashion. Local anesthesia was lidocaine, which was given in the substernal area close to the 4th intercostal space. Loop monitor [employer] with serial number [id number] was implanted according to the protocol. Steri- Strips were placed at the end of the procedure. There were no complications and the patient tolerated the procedure well. ANESTHESIA: Local anesthesia with lidocaine. COMPLICATIONS: None CONTRAST/FLUOROSCOPY: None CONCLUSION: Successful implantation of loop monitor with no complication FINAL DIAGNOSIS: Paroxysmal atrial fibrillation Palpitation Hypertension Hyperlipidemia SHEREEN HINSON MD February 05, 2023 11:08
== END ==
LOC: CATH 10:13
PROVIDERS: ATTEND Internal Medicine Cardiovascular Disease
DX: I48.0 Paroxysmal atrial fibrillation (principal); E66.01 Morbid (severe) obesity due to excess calories; I25.10 Atherosclerotic heart disease of native coronary artery without angina pectoris; I10 Essential (primary) hypertension; E78.2 Mixed hyperlipidemia; G47.33 Obstructive sleep apnea (adult) (pediatric); I65.23 Occlusion and stenosis of bilateral carotid arteries; I83.90 Asymptomatic varicose veins of unspecified lower extremity; I49.8 Other specified cardiac arrhythmias; G25.81 Restless legs syndrome; I49.1 Atrial premature depolarization; Z68.39 Body mass index [BMI] 39.0-39.9, adult; Z87.891 Personal history of nicotine dependence; Z79.01 Long term (current) use of anticoagulants; Z79.899 Other long term (current) drug therapy
CPT/HCPCS: 33285

== ENCOUNTER → 2023-02-17 | Outpatient (CLI) | payer MEDICARE ==
[~2023-02-17] MED LIST changes: -LIDOCAINE 1% INJ 20 ML VIAL ONE
== END ==
LOC: CARD 12:33
PROVIDERS: ATTEND Internal Medicine Cardiovascular Disease
DX: I08.0 Rheumatic disorders of both mitral and aortic valves (principal); I10 Essential (primary) hypertension
CPT/HCPCS: 93306